=== PATIENT | female | born 1955 | race Caucasian/White ===

== ENCOUNTER 2017-08-08 15:20 | Outpatient (RCR) | payer MEDICARE, OTHER ==
[2017-08-02 13:46] VITALS: BMI 43.6
[~2017-08-08 15:20] MED LIST: ALB18R IH; AMOX1TAB9 PO; ATOR20TA65 PO; BENZ200C15 PO; CIP500 PO; CITA-139 PO; CLO10 MT; CLO5 PO; CLON-1 PO; CLON-303 PO; CYCL10TA29 PO; DIPH0.5D12 IM; DOXY-179 PO; DULO30CA6 PO; ENOX100D5 SQ; ETAN25DI2 SQ; ETAN50DI5 SQ; FEXO-1 PO; FLU IM; FLU45SYR17 IM; FLU45SYR25 IM ONLY; FOL1 PO; FOLI-68 PO; GUAI120L3 PO; HCTZ; HYDR-2966 PO; LEVO750T44 PO; LIN600 PO; LISI5TAB25 PO; LOR5/325 PO; METF-410 PO; METH2.5T43 PO; METH4TAB66 PO; MICARDIS; MULT1CAP59 PO; NYSP TOP; NYST15CR32 TP; NYST60PO9 TP; OMEP-114 PO; OXYC-865 PO; OXYGEN INH; PANT40TA65 PO; PER PO; PHEN240S3 PO; PNEU0.5D3 IM; PRE1 PO; PRE20 PO; PRE5 PO; PRED-1 PO; PRED20TA6 PO; SULF-198 PO; TRA50 PO; TRAM-420 PO; WARF7.5T26 PO; ZOLP-358 PO; [UNRECOGNIZED DRUG - OTHER]
--- NOTE | 2017-08-09 13:29 | Transitional Care Management ---
Assessment Visit Type: Telephone Visit (08/08 Kamilla) Cardiac: WNL Cardiac Comment: 08/08 Denies CP Respiratory: WNL Respiratory Comment: 08/08 No Resp Distress GI: Nutrition: WNL Except GI Comment: 08/09 Not really feeling hungery so trying to monitor what she does eat. She will ask [facility] for a [facility] and go to that so obtain some help. We did go over some plans ie NO sugar.! 'I'm finding that very difficult as we have some family traditions and Cookies and cand are around." Constipation?: No (08/09 some diarrhea. Enc her to monitor and call Jones if gets worse or continues) Musculoskeletal, Exercise: WNL Except Musculoskeletal, Excercise Com: 08/09 Having a difficult time with activity as her R foot hurts and HH has it wrapped. Trys walking on heel with cane to BR and to recliner. Keeping foot elevated. Mobility Comment: 08/09 Denies falls and mobility is as abovve. Feeling of Well Being: WNL Except (08/09 "I'm a little afraid as I'm concerned about my diet plan and my actiivity. so will work w HH as I need to") Community Resources/HHC: 07/22 Premium Questions for Future PCP Visit: 08/09 ORder a glucometer order for Diabetic clinic TCM Discharge Criteria Transitional Care Comment: 08/04 Pt joined program but was a little down as she thought she was going home and plans were changed so she could have a pick placement. Did not want to visit much today. I did leave her info on diabetes, metformin and vanco.Will visit again tomorrow and go over the info. 08/08 Phone call short as HH there at time of call. She states she is doing OK. 08/09 She seemed to being OK. Her Grandson was helping her. He is very assistive and wants to help her all he can. HH had just visited and wrapped her foot. States it is OK during the day but seemed pretty painful at night. Told her to call the doctor if pain got worse or have HH check foot wor any signs of infection. She wanted us to call her a couple more times for the suppirt and instructions. 08/05 Had not read the infp--we went over the importance of diabetic diet and the possibilty of needing to do BS. She said "she couldn"t get a glucometer until [place] I talked to her providing nurse and ask her to start letting her do her glucoses and shots so she would have an idea once she went home. Kamilla is depressed today as she learned this AM that she would be having her great toe amputated tomorrow, but would probably be able to go home on Monday.She has not been real receptive in talking about her diabetes and cellulitis in great toe. Will have HH on discharge. 08/07 Spoke with her briefly, she is discharging and is very preoccupied. I reviewed her discharge medications, but she was not focused. Copies to: ESTER STEELE APRN, JOAN Aug 09, 2017 13:29
[2017-08-11] MEDS ORDERED: FLUC150T40 PO (11:03)
--- NOTE | 2017-08-16 13:14 | Transitional Care Management ---
Assessment Cardiac: WNL Cardiac Comment: 08/08 Denies CP Respiratory: WNL Respiratory Comment: 08/08 No Resp Distress GI: Nutrition: WNL Except GI Comment: 08/09 Not really feeling hungery so trying to monitor what she does eat. She will ask [facility] for a script [facility] and go to that so obtain some help. We did go over some plans ie NO sugar.! 'I'm finding that very difficult as we have some family traditions and Cookies and cand are around." Constipation?: No (08/09 some diarrhea. Enc her to monitor and call Jones if gets worse or continues) Musculoskeletal, Exercise: WNL Except Musculoskeletal, Excercise Com: 08/09 Having a difficult time with activity as her R foot hurts and HH has it wrapped. Trys walking on heel with cane to BR and to recliner. Keeping foot elevated. Mobility Comment: 08/09 Denies falls and mobility is as abovve. Feeling of Well Being: WNL Except (08/09 "I'm a little afraid as I'm concerned about my diet plan and my actiivity. so will work w HH as I need to") Community Resources/HHC: 07/22 Premium Questions for Future PCP Visit: 08/09 ORder a glucometer order for Diabetic clinic TCM Discharge Criteria Transitional Care Comment: 08/04 Pt joined program but was a little down as she thought she was going home and plans were changed so she could have a pick placement. Did not want to visit much today. I did leave her info on diabetes, metformin and vanco.Will visit again tomorrow and go over the info. 08/05 Had not read the infp--we went over the importance of diabetic diet and the possibilty of needing to do BS. She said "she couldn"t get a glucometer until [place] I talked to her providing nurse and ask her to start letting her do her glucoses and shots so she would have an idea once she went home. Kamilla is depressed today as she learned this AM that she would be having her great toe amputated tomorrow, but would probably be able to go home on Monday.She has not been real receptive in talking about her diabetes and cellulitis in great toe. Will have HH on discharge. 08/07 Spoke with her briefly, she is discharging and is very preoccupied. I reviewed her discharge medications, but she was not focused. 08/08 Phone call short as HH there at time of call. She states she is doing OK. 08/09 She seemed to being OK. Her Grandson was helping her. He is very assistive and wants to help her all he can. HH had just visited and wrapped her foot. States it is OK during the day but seemed pretty painful at night. Told her to call the doctor if pain got worse or have HH check foot wor any signs of infection. She wanted us to call her a couple more times for the suppirt and instructions. VALENTINE GONZALEZ Aug 16, 2017 13:14
--- NOTE | 2017-08-16 13:40 | Transitional Care Management ---
Assessment Visit Type: Telephone Visit Spoke with: Kamilla Cardiac: WNL Cardiac Comment: 08/08 Denies CP Respiratory: WNL Respiratory Comment: 08/08 No Resp Distress GI: Nutrition: WNL Except GI Comment: 08/09 Not really feeling hungery so trying to monitor what she does eat. She will ask [facility] for a script [facility] and go to that so obtain some help. We did go over some plans ie NO sugar.! 'I'm finding that very difficult as we have some family traditions and Cookies and cand are around." 08/16 Blood Glucose staying in the 130's. Constipation?: No (08/09 some diarrhea. Enc her to monitor and call Jones if gets worse or continues) Musculoskeletal, Exercise: WNL Except Musculoskeletal, Excercise Com: 08/09 Having a difficult time with activity as her R foot hurts and HH has it wrapped. Trys walking on heel with cane to BR and to recliner. Keeping foot elevated. 08/16 Using a walker, but has a hard time getting around without putting weight on her foot. Mobility Comment: 08/09 Denies falls and mobility is as abovve. Integumentary: WNL Except Integumentary Comment: 08/16 HH doing daily dressing changes. Feeling of Well Being: WNL Except (08/09 "I'm a little afraid as I'm concerned about my diet plan and my actiivity. so will work w HH as I need to") Feeling of Well Being Comment: 08/16 She is very proud of her ability to maintain blood sugars in the 130's with holiday sweets around. She refrained from eating the sweets. Socialization: WNL Pain/Management: WNL Scheduled Follow-Up with [facility]: Yes (08/[address] Cárdenas today.) Community Resources/HHC: 07/22 Premium Questions for Future PCP Visit: 08/09 ORder a glucometer order for Diabetic clinic 08/16 She does not have a glucometer, she uses her husbands. Following Discharge Instructio: Yes TCM Discharge Criteria Transitional Care Comment: 08/04 Pt joined program but was a little down as she thought she was going home and plans were changed so she could have a pick placement. Did not want to visit much today. I did leave her info on diabetes, metformin and vanco.Will visit again tomorrow and go over the info. 08/05 Had not read the infp--we went over the importance of diabetic diet and the possibilty of needing to do BS. She said "she couldn"t get a glucometer until Monday [place] I talked to her providing nurse and ask her to start letting her do her glucoses and shots so she would have an idea once she went home. Kamilla is depressed today as she learned this AM that she would be having her great toe amputated tomorrow, but would probably be able to go home on Monday.She has not been real receptive in talking about her diabetes and cellulitis in great toe. Will have HH on discharge. 08/07 Spoke with her briefly, she is discharging and is very preoccupied. I reviewed her discharge medications, but she was not focused. 08/08 Phone call short as HH there at time of call. She states she is doing OK. 08/09 She seemed to being OK. Her Grandson was helping her. He is very assistive and wants to help her all he can. HH had just visited and wrapped her foot. States it is OK during the day but seemed pretty painful at night. Told her to call the doctor if pain got worse or have HH check foot wor any signs of infection. She wanted us to call her a couple more times for the suppirt and instructions. 08/[address] Cárdenas today, blood sugars have been in the 130's, she does not have a glucometer yet, she says she needs an order from [facility]. I encouraged her to call to see if she could get an order sent in. She has been using her 's glucometer. HH changing her dressing daily, no s/s of infection. Copies to: ESTER STEELE APRN-[place]son; ROBBY CÁRDENAS MD, MICHAEL K Aug 16, 2017 13:39
[2017-08-16] MEDS ORDERED: diabetic supplies (16:21)
--- NOTE | 2017-08-24 17:09 | Transitional Care Management ---
Assessment Cardiac: WNL Cardiac Comment: 08/08 Denies CP Respiratory: WNL Respiratory Comment: 08/08 No Resp Distress GI: Nutrition: WNL Except GI Comment: 08/09 Not really feeling hungery so trying to monitor what she does eat. She will ask [facility] for a script [facility] and go to that so obtain some help. We did go over some plans ie NO sugar.! 'I'm finding that very difficult as we have some family traditions and Cookies and cand are around." 08/16 Blood Glucose staying in the 130's. 08/24 blood sugars stable in the 90's Wt Gain/Loss: WNL Constipation?: No (08/09 some diarrhea. Enc her to monitor and call Jones if gets worse or continues) : WNL Musculoskeletal, Exercise: WNL Musculoskeletal, Excercise Com: 08/09 Having a difficult time with activity as her R foot hurts and HH has it wrapped. Trys walking on heel with cane to BR and to recliner. Keeping foot elevated. 08/16 Using a walker, but has a hard time getting around without putting weight on her foot. Mobility Comment: 08/09 Denies falls and mobility is as abovve. Integumentary: WNL Except Integumentary Comment: 08/16 HH doing daily dressing changes. 08/24 HH has stopped doing the dressing changes, she and her granddaughter have been doing them. 08/24 I spoke with [facility], kamilla had been refusing the dressing changes, and [facility] has been trying to speak with her about it. The dressing change is a bandaid. Feeling of Well Being: WNL Except (08/09 "I'm a little afraid as I'm concerned about my diet plan and my actiivity. so will work w HH as I need to") Feeling of Well Being Comment: 08/16 She is very proud of her ability to maintain blood sugars in the 130's with holiday sweets around. She refrained from eating the sweets. 08/24 Feels good, proud of her blood sugars. Socialization: WNL Pain/Management: WNL Scheduled Follow-Up with [facility]: Yes (08/[address] Evans today.) Community Resources/HHC: 07/22 Premium Questions for Future PCP Visit: 08/09 ORder a glucometer order for Diabetic clinic 08/16 She does not have a glucometer, she uses her husbands. 08/24 has glucometer Following Discharge Instructio: Yes TCM Discharge Criteria Transitional Care Comment: 08/04 Pt joined program but was a little down as she thought she was going home and plans were changed so she could have a pick placement. Did not want to visit much today. I did leave her info on diabetes, metformin and vanco.Will visit again tomorrow and go over the info. 08/05 Had not read the infp--we went over the importance of diabetic diet and the possibilty of needing to do BS. She said "she couldn"t get a glucometer until Monday [place] I talked to her providing nurse and ask her to start letting her do her glucoses and shots so she would have an idea once she went home. Kamilla is depressed today as she learned this AM that she would be having her great toe amputated tomorrow, but would probably be able to go home on Monday.She has not been real receptive in talking about her diabetes and cellulitis in great toe. Will have HH on discharge. 08/07 Spoke with her briefly, she is discharging and is very preoccupied. I reviewed her discharge medications, but she was not focused. 08/08 Phone call short as HH there at time of call. She states she is doing OK. 08/09 She seemed to being OK. Her Grandson was helping her. He is very assistive and wants to help her all he can. HH had just visited and wrapped her foot. States it is OK during the day but seemed pretty painful at night. Told her to call the doctor if pain got worse or have HH check foot wor any signs of infection. She wanted us to call her a couple more times for the suppirt and instructions. 08/[address] Evans today, blood sugars have been in the 130's, she does not have a glucometer yet, she says she needs an order from Sarah [facility]. I encouraged her to call to see if she could get an order sent in. She has been using her 's glucometer. HH changing her dressing daily, no s/s of infection. 08/[address] Evans tomorrow to have sutures removed. blood sugars well controlled. May discharge with next follow up call if appropriate. VALENTINE GONZALEZ Aug 24, 2017 17:09
--- NOTE | 2017-08-30 14:53 | Transitional Care Management ---
Assessment Visit Type: Telephone Visit Spoke with: Kamilla Cardiac: WNL Cardiac Comment: 08/08 Denies CP Respiratory: WNL Respiratory Comment: 08/08 No Resp Distress GI: Nutrition: WNL Except GI Comment: 08/09 Not really feeling hungery so trying to monitor what she does eat. She will ask Jones PE[facility] for a script [facility] and go to that so obtain some help. We did go over some plans ie NO sugar.! 'I'm finding that very difficult as we have some family traditions and Cookies and cand are around." 08/16 Blood Glucose staying in the 130's. 08/24 blood sugars stable in the 90's 08/30 BS range 92-101. On metformin alone. Gave away her Cmas sweets to family. Watching diet better with portion control. Worried about spouse with BS over 200 and A1C >10. Wt Gain/Loss: WNL Constipation?: No (08/09 some diarrhea. Enc her to monitor and call Jones if gets worse or continues) : WNL Musculoskeletal, Exercise: WNL Musculoskeletal, Excercise Com: 08/09 Having a difficult time with activity as her R foot hurts and HH has it wrapped. Trys walking on heel with cane to BR and to recliner. Keeping foot elevated. 08/16 Using a walker, but has a hard time getting around without putting weight on her foot. Mobility Comment: 08/09 Denies falls and mobility is as abovve. 08/30 Has to be careful amb as the sutrued area on her toe is bearing wt when she amb. Enc to Ask Sarah at next appt if an orthotic or PT would be helpful Integumentary: WNL Except Integumentary Comment: 08/16 HH doing daily dressing changes. 08/24 HH has stopped doing the dressing changes, she and her granddaughter have been doing them. 08/24 I spoke with [facility], kamilla had been refusing the dressing changes, and [facility] has been trying to speak with her about it. The dressing change is a bandaid. 08/30 Wound has healed per MD clinic note; sutures out, no f/u needed. Still has a scab Feeling of Well Being: WNL Except (08/09 "I'm a little afraid as I'm concerned about my diet plan and my actiivity. so will work w HH as I need to") Feeling of Well Being Comment: 08/16 She is very proud of her ability to maintain blood sugars in the 130's with holiday sweets around. She refrained from eating the sweets. 08/24 Feels good, proud of her blood sugars. Socialization: WNL Pain/Management: WNL Scheduled Follow-Up with [facility]: Yes (08/[address] Evans today.) Community Resources/HHC: 07/22 Premium 08/30 no more HHC after 08/17. Sees Sarah 09/01 Questions for Future PCP Visit: 08/09 ORder a glucometer order for Diabetic clinic 08/16 She does not have a glucometer, she uses her husbands. 08/24 has glucometer 08/30 placing wt on sutured area of toe and is irritating; would she benefit from PT or an orthotic? Following Discharge Instructio: Yes TCM Discharge Criteria Medication Knowledge: 08/30 no med changes, oral meds for diabetes Transitional Care Comment: 08/04 Pt joined program but was a little down as she thought she was going home and plans were changed so she could have a picc placement. Did not want to visit much today. I did leave her info on diabetes, metformin and vanco.Will visit again tomorrow and go over the info. 08/05 Had not read the info--we went over the importance of diabetic diet and the possibilty of needing to do BS. She said "she couldn"t get a glucometer until Monday [place] I talked to her providing nurse and ask her to start letting her do her glucoses and shots so she would have an idea once she went home. Kamilla is depressed today as she learned this AM that she would be having her great toe amputated tomorrow, but would probably be able to go home on Monday.She has not been real receptive in talking about her diabetes and cellulitis in great toe. Will have HH on discharge. 08/07 Spoke with her briefly, she is discharging and is very preoccupied. I reviewed her discharge medications, but she was not focused. 08/08 Phone call short as HH there at time of call. She states she is doing OK. 08/09 She seemed to being OK. Her Grandson was helping her. He is very assistive and wants to help her all he can. HH had just visited and wrapped her foot. States it is OK during the day but seemed pretty painful at night. Told her to call the doctor if pain got worse or have HH check foot wor any signs of infection. She wanted us to call her a couple more times for the suppirt and instructions. 08/[address] Evans today, blood sugars have been in the 130's, she does not have a glucometer yet, she says she needs an order from Sarah Bishop. I encouraged her to call to see if she could get an order sent in. She has been using her 's glucometer. HH changing her dressing daily, no s/s of infection. 08/[address] Evans tomorrow to have sutures removed. blood sugars well controlled. May discharge with next follow up call if appropriate. 08/30 wound has healed, BS managed with oral meds. Agree to dc from DENNIS Leone Aug 30, 2017 14:53
[2017-09-01] MEDS ORDERED: LISI5TAB25 PO (11:13)
[2017-09-01] MEDS ORDERED: DULO30CA6 PO (11:13)
[2017-09-01] MEDS ORDERED: PRED-1 PO (11:13)
[2017-09-01] MEDS ORDERED: PANT40TA65 PO (11:13)
[2017-09-01] MEDS ORDERED: NYST15CR32 TP (11:13)
[2017-09-01] MEDS ORDERED: NYST60PO9 TP (11:13)
[2017-09-01] MEDS ORDERED: HYDR-2966 PO (11:13)
[2017-09-01] MEDS ORDERED: FOLI-68 PO (11:13)
[2017-09-01] MEDS ORDERED: PRE1 PO (11:13)
[2017-09-01] MEDS ORDERED: METF-410 PO (11:13)
[2017-09-01] MEDS ORDERED: ATOR20TA65 PO (11:13)
== END 2017-08-30 17:53 | disposition home or self-care (01) ==
LOC: TCM 15:20
PROVIDERS: ATTEND Nurse Practitioner
DX: Z02.9 Encounter for administrative examinations, unspecified (principal)

== ENCOUNTER → 2017-09-01 | Outpatient (CLI) | payer MEDICARE, OTHER ==
[2017-08-02 13:46] VITALS: BMI 43.6
[~2017-09-01] MED LIST changes: +FLUC150T40 PO; +diabetic supplies
[2017-09-01 09:33] LABS: PLATELET COUNT, AUTOMATED 212 K/uL (150-450)
[2017-09-01 10:12] LABS: LDL CHOLESTEROL 48 mg/dl
== END ==
LOC: LAB 08-31 16:40
PROVIDERS: ATTEND Nurse Practitioner Family
DX: E11.9 Type 2 diabetes mellitus without complications (principal); Z86.2 Personal history of diseases of the blood and blood-forming organs and certain disorders involving the immune mechanism; I10 Essential (primary) hypertension; E78.5 Hyperlipidemia, unspecified; E87.6 Hypokalemia; M86.9 Osteomyelitis, unspecified
CPT/HCPCS: 36415; 82040; 82247; 82310; 82374; 82435; 82465; 82565; 82947; 83036; 83718; 84075; 84132; 84155; 84295; 84443; 84450; 84460; 84478; 84520; 85025; 86140

== ENCOUNTER 2017-09-16 04:58 | Emergency (ER) | payer MEDICARE, OTHER ==
[2017-08-02 13:46] VITALS: Ht 177.8 cm; Wt 137.9 kg
[~2017-09-16] VITALS: Ht 177.8 cm; Wt 137.9 kg
--- NOTE | 2017-09-16 05:00 | ER Report ---
History and Physical Time Seen By MD: 04:59 HPI/ROS CHIEF COMPLAINT: Sore throat, difficulty swallowing HISTORY OF PRESENT ILLNESS: 62-year-old female with a sore throat for one week. Is become worse over the last few days. She notes pain with swallowing. She also notes significant secretions where she feels like she has to continue to swallow to prevent them from building up. She is concerned she may aspirate. Patient notes no fevers. Patient has significant medical history for rheumatoid arthritis on immunosuppression and prednisone. Patient notes no difficulty swallowing other than pain. She denies foreign body sensation. She notes significant pain on the left side of her neck and thinks she feels a lump in the anterior cervical chain area. She notes the pain radiates up to her left ear. Patient denies ear pain or drainage. Patient denies TMJ disorder. REVIEW OF SYSTEMS: Respiratory: No cough, no dyspnea. Cardiovascular: No chest pain, no palpitations. Gastrointestinal: No vomiting, no abdominal pain. Musculoskeletal: No back pain. Allergies: Coded Allergies: levofloxacin (Verified Allergy, Intermediate, RASH, 09/16/17) Home Meds Active Scripts Oxycodone Hcl/Acetaminophen (PERCOCET 5-325 MG TABLET) 1 Each Tablet, 1 EACH PO Q4-6H Y for PAIN, #12 Prov:TIM BURGER DO 09/16/17 Amoxicillin 500 Mg Tab (AMOXICILLIN 500 MG TAB) 500 Mg Tablet, 1 TAB PO Q8H for infection, #20 TAB Prov:TIM BURGER DO 09/16/17 Clotrimazole (CLOTRIMAZOLE) 10 Mg Troc, 10 MG MT QID for yeast infection, #30 Prov:TIM BURGER DO 09/16/17 Duloxetine HCl (Duloxetine HCl) 30 Mg Capsule.dr, 1 CAP PO DAILY, #30 CAP 0 Refills Prov:ESTER STEELE APRN [facility] 09/01/17 Prednisone 10 Mg Tab (PREDNISONE 10 MG TAB) 10 Mg Tablet, 1 TAB PO QAM, #30 TAB 0 Refills Prov:ESTER STEELE APRN [facility] 09/01/17 Prednisone (PREDNISONE) 1 Mg Tab, 1 TAB PO HS, #30 TAB 0 Refills Prov:ESTER STEELE APRN [facility] 09/01/17 Atorvastatin Calcium (ATORVASTATIN CALCIUM) 20 Mg Tablet, 1 TAB PO DAILY, #90 TAB 4 Refills Prov:ESTER STEELE APRN-[place] 09/01/17 Hydrochlorothiazide (HYDROCHLOROTHIAZIDE) 25 Mg Tablet, 1 TAB PO QDAY, #90 TAB 4 Refills Prov:ESTER STEELE APRN-C 09/01/17 Lisinopril (LISINOPRIL) 5 Mg Tablet, 1 TAB PO QDAY, #90 TAB 4 Refills Prov:ESTER STEELE APRN 09/01/17 Metformin Hcl (METFORMIN HCL) 500 Mg Tablet, 2 TAB PO BID, #120 TAB 4 Refills Prov:ESTER STEELE APRN 09/01/17 NYSTATIN 798959 UNT/ML Topical Cream (NYSTATIN 149181 UNT/ML Topical Cream) 15 Gm Cream..g., 1 LELO TP TID, #60 GM 1 Refill Prov:ESTER STEELE APRN 09/01/17 Folic Acid (FOLIC ACID) 1 Mg Tablet, 1 TAB PO QDAY, #90 TAB 4 Refills Prov:ESTER STEELE APRN 09/01/17 Pantoprazole Sodium (PANTOPRAZOLE SODIUM) 40 Mg Tablet.dr, 1 TAB PO QDAY, #90 TAB.SR 4 Refills Prov:ESTER STEELE APRN 09/01/17 Nystatin (NYSTOP) 60 Gm Powder, 1 LELO TP TID Y for RASH, #1 BOTTLE 3 Refills 100,000 RETIREMENT units per gram Prov:ESTER STEELE APRN 09/01/17 [diabetic supplies] No Conflict Check Prov:ESTER STEELE APRN 08/16/17 Fluconazole (DIFLUCAN) 150 Mg Tablet, 1 TAB PO Q72H, #2 TAB 0 Refills Prov:ESTER STEELE APRN 08/11/17 Amoxicillin/Potassium Clav (AMOX TR-K CLV 875-125 MG TAB) 1 Each Tablet, 1 TAB PO Q12H, #20 TAB 0 Refills Prov:ROBBY CÁRDENAS MD 08/07/17 Albuterol Sulfate (VENTOLIN HFA) 18 Gm Inh, 2 PUFF IH QID Y for WHEEZING, #1 INHALER 2 Refills Prov:ESTER STEELE APRN [facility] 09/06/16 Clonazepam (KLONOPIN) 1 Mg Tablet, 1 TAB PO QHS Y for restless leg symptoms, # 90 TAB 1 Refill Prov:ESTER STEELE APRN [facility] 09/06/16 Zolpidem Tartrate (ZOLPIDEM TARTRATE) 10 Mg Tablet, 1 TAB PO QHS Y for INSOMNIA , #90 TAB 1 Refill Prov:ESTER STEELE APRN [facility] 09/06/16 Reported Medications Oxygen (Oxygen) 2 L Inha, 2 L INH HS 10/28/12 Multivitamins (Multivitamin) 1 Each Capsule, 1 EACH PO 10/28/12 Past Medical/Surgical History Past Medical History Cardiovascular: Reports hx of: hypertension other CV history (iron deficiency anemia) Respiratory: Reports hx of: asthma pneumonia (2017) other respiratory history (nocturnal hypoxia - no sleep apnea - wears 2 lpm O2 at HS) Gastrointestinal: Reports hx of: GERD Musculoskeletal: Reports hx of: rheumatoid arthritis (Enbrel and prednisone) Psychiatric: Reports hx of: depression Endocrine: Reports hx of: diabetes type 2 Past Surgical History Gastrointestinal: Reports hx of: cholecystectomy (2010) Musculoskeletal: Reports hx of: total joint replacement (bilateral knees - 2003 and 2004) Reviewed Nurses Notes: Yes Old Medical Records Reviewed: Yes Hx Smoking: No Smoking Status: Never Smoker Exposure to Second Hand Smoke?: No Hx Substance Use Disorder: No Hx Alcohol Use: No Constitutional Vital Sign - Last 24 Hours 09/16/17 05:04 Temp 98.3 Pulse 95 Resp 20 B/P (MAP) 145/88 Pulse Ox 92 O2 Delivery Room Air Physical Exam General Appearance: The patient is alert, has no immediate need for airway protection and no signs of toxicity. Mild distress, holding a cup and drinking , frequency, some water Eyes: Pupils equal and round no pallor or injection. ENT, Mouth: Oropharynx is grossly erythematous without uvular deviation or tonsillar hypertrophy. There is no exudate. On palpation of the anterior cervical chain. There is no lymphadenopathy or induration of tissues. There is mild tenderness on palpation. The left side. Respiratory: There are no retractions, lungs are clear to auscultation. Cardiovascular: Regular rate and rhythm. Gastrointestinal: Abdomen is soft and non tender, no masses, bowel sounds normal. Skin: Warm and dry, no rashes. Musculoskeletal: Neck is supple non tender. No lymphadenopathy, no induration Extremities are nontender, nonswollen and have full range of motion. DIFFERENTIAL DIAGNOSIS: After history and physical exam differential diagnosis was considered for acute pharyngitis, viral syndrome, oral candidiasis, neck abscess, lymphadenopathy, TMJ disorder, sinus infection, dental pain. Medical Decision Making Data Points Laboratory Hematology Test 09/16/17 05:25 Group A Streptococcus Screen Negative (NEGATIVE) Chemistry Test 09/16/17 05:25 Group A Streptococcus Screen Negative (NEGATIVE) ED Course/Re-evaluation ED Course Patient was admitted to an examination room. H&P was done. The differential diagnoses was considered. On clinical examination. Patient has limited clinical findings. She is afebrile, but she's immunosuppressed. Her throat is grossly erythematous. With her immunosuppression differential would make a significant candidiasis. She may also have strep pharyngitis. I did offer her strep culture, which is negative. Patient be covered with amoxicillin, Mycelex troches. She'll be given a limited supply of Percocet for Her pain relief. She is advised to follow-up with her primary care doctor if unimproved in 2-3 days. Decision to Disposition Date: Sep 16, 2017 Decision to Disposition Time: 05:22 Depart Departure Latest Vital Signs Vital Signs Date Time Temp Pulse Resp B/P (MAP) Pulse Ox O2 Delivery O2 Flow Rate FiO2 09/16/17 05:04 98.3 95 20 145/88 92 Room Air Impression: Primary Impression: Pharyngitis Additional Impressions: Painful swallowing Rheumatoid arthritis Immunosuppression Condition: Improved Disposition: HOME OR SELF-CARE Referrals: ESTER STEELE APRN [facility] (PCP) New Scripts Oxycodone Hcl/Acetaminophen (PERCOCET 5-325 MG TABLET) 1 Each Tablet 1 EACH PO Q4-6H Y for PAIN, #12 Prov: TIM BURGER DO 09/16/17 Amoxicillin 500 Mg Tab (AMOXICILLIN 500 MG TAB) 500 Mg Tablet 1 TAB PO Q8H for infection, #20 TAB Prov: TIM UBRGER DO 09/16/17 Clotrimazole (CLOTRIMAZOLE) 10 Mg Troc 10 MG MT QID for yeast infection, #30 Prov: TIM BURGER DO 09/16/17 Patient Instructions: Pharyngitis (ED) Additional Instructions: Take Benadryl to dry up the secretions Take medications as prescribed Follow-up with her primary care if unimproved in 2-4 days Problem Qualifiers Primary Impression: Pharyngitis Pharyngitis/tonsillitis etiology: unspecified etiology Qualified Codes: J02.9 - Acute pharyngitis, unspecified Additional Impressions: Rheumatoid arthritis Rheumatoid arthritis location: unspecified site Rheumatoid factor presence: unspecified presence Qualified Codes: M06.9 - Rheumatoid arthritis, unspecified TIM BURGER DO Sep 16, 2017 05:00
[2017-09-16 05:04] VITALS: BP 145/88
[2017-09-16] MEDS ORDERED: AMOXICILLIN 500 MG CAP PO ONE (05:25)
[2017-09-16] MEDS ORDERED: oxyCODONE/ACETAMIN 5/325MG TH 2 TAB/BOTTLE PO ONE (05:25)
[2017-09-16] MEDS ORDERED: CLO10 MT (05:26)
[2017-09-16] MEDS ORDERED: AMOX500T10 PO (05:26)
[2017-09-16] MEDS ORDERED: OXYC-865 PO (05:26)
== END 2017-09-16 05:35 | disposition home or self-care (01) ==
LOC: ER 05:09
DX: J02.9 Acute pharyngitis, unspecified (principal); M06.9 Rheumatoid arthritis, unspecified; R13.10 Dysphagia, unspecified
CPT/HCPCS: 87081; 87880; 99281; A9270

== ENCOUNTER → 2018-01-18 | Outpatient (CLI) | payer MEDICARE, OTHER ==
[2017-08-02 13:46] VITALS: BMI 43.6
[~2018-01-18] MED LIST changes: +AMOX500T10 PO; -CITA-139 PO; +CITA-145 PO; +LOSA25TA50 PO; -METF-410 PO; +METF-411 PO; +METF10002 PO; +OLO2ODPT OU; +TIO18R INH
== END ==
LOC: LAB 07:27
PROVIDERS: ATTEND Nurse Practitioner Family
DX: E78.5 Hyperlipidemia, unspecified (principal); E11.9 Type 2 diabetes mellitus without complications
CPT/HCPCS: 36415; 82040; 82247; 82310; 82374; 82435; 82565; 82947; 83036; 84075; 84132; 84155; 84295; 84443; 84450; 84460; 84520

== ENCOUNTER → 2018-01-23 | Outpatient (CLI) | payer MEDICARE, OTHER ==
[2017-08-02 13:46] VITALS: BMI 43.6
[~2018-01-23] MED LIST changes: +AMOX-559 PO
== END ==
LOC: LAB 14:30
PROVIDERS: ATTEND Nurse Practitioner Primary Care
DX: R30.0 Dysuria (principal)
CPT/HCPCS: 81001

== ENCOUNTER → 2018-01-25 | Outpatient (CLI) | payer MEDICARE, OTHER ==
[2017-08-02 13:46] VITALS: BMI 43.6
[~2018-01-25] MED LIST changes: +ETAN50PE3 SQ
--- NOTE | 2018-01-25 15:18 | RADIOLOGY IMAGING REPORT ---
FACILITY: [facility] PATIENT NAME: ECHO SWANSON : [id number] MR: [id number] V: [id number] EXAM DATE: [id number] ORDERING PHYSICIAN: ESTER STEELE TECHNOLOGIST: Aaliyah Lane PROCEDURE:BILATERAL DIGITAL SCREENING MAMMOGRAM WITH CAD ASSISTED INTERPRETATION & 3D TOMOSYNTHESIS COMPARISON:Prior mammograms 10/25/16, 09/20/16. INDICATIONS:screening FINDINGS: Mildly heterogeneous fibroglandular tissue is seen throughout the breasts. The parenchymal pattern has remained stable allowing for difference in mammographic technique & patient positioning. There is no evidence of malignant appearing mass, malignant appearing calcifications or other secondary sign of malignancy in either breast. DIAGNOSTIC CATEGORY 1--NEGATIVE. RECOMMENDATIONS: ROUTINE MAMMOGRAM AND CLINICAL EVALUATION. IMPRESSION: BIRADS 1: Negative. No significant abnormality is seen. Dictated by: Kirstie Garcia M.D. on 01/25/2018 at 9:37 Transcribed by: LEIDY on 01/25/2018 at 10:07 Approved by: Kirstie Garcia M.D. on 01/25/2018 at 15:17 [facility]
== END ==
LOC: MAMO 00:17
PROVIDERS: ATTEND Nurse Practitioner Family
DX: Z12.31 Encounter for screening mammogram for malignant neoplasm of breast (principal)
CPT/HCPCS: 77063; 77067

== ENCOUNTER 2018-04-19 14:15 | Outpatient (RCR) | payer MEDICARE, OTHER ==
[2017-08-02 13:46] VITALS: BMI 43.6
--- NOTE | 2018-01-25 15:37 | PT INITIAL EVALUATION ---
MEDICAL DIAGNOSIS: neuropathic ulcer; s/p amputation of R) great toe TREATMENT DIAGNOSIS: same DATE OF ONSET: chronic SUBJECTIVE: Pt notes that she has diabetes, which is fairly well controlled now , with most recent A1C being 6.6. Pt indicates that she did require an amputation of R) great toe due to osteomyelitis in July of [address] Evans. Pt then reports that she was seen at [facility] in order to be fitted with custom orthodics and this new toe wound under callous seemed to appear after she started wearing the new inserts. Pt arrives with sock covering calloused area with open wound draining onto sock. REHAB PROBLEM LIST: Open wound open to environment PREVIOUS MEDICAL HISTORY: see EMR OBJECTIVE: Wound at R) foot, plantar surface of distal end of 1st ray residual limb- s/p amputation measures: 0.5cm L x 0.5cm W x 0.4cm D, with periwound callous formation. No bony end feel noted in base of wound but depth is fairly boggy. Good granulation base currently noted and following debridement, edges have been beveled down to healthy wound borders. ASSESSMENT: Wound cleansed with sterile saline and treated with collagen matrix product with silver, followed by donut of Qwick to provide some off loading. This was then secured with bordered gauze dressing. Short Term Goals 1. Pt to maintain a clean, dry and intact dressing between visits and change dressing if it becomes dislodged, contaminated or overly saturated. 2. Pt to continue to control blood sugars and follow instructions of healthcare provided regarding her whole body health. \ 3. Base of wound to demo full granulation with no boggy end feel or undermining noted. 4. Edges of wound to gradually epithelialize over wound base with no signs of infection or abscess noted. \ 5. Pt to have consult with receptionist regarding diabetic shoes and inserts to prevent further issues. Patient's Goals Wound to heal without further complications. PLAN: Patient to be seen for non-excisional, selective debridement of non- viable tissue and callous formation around wound bed, and advanced wound care product selection in order to optimize wound healing and minimize risk of infection. 1x/Week for up to 3 months Thank you for this referral. If you have any questions, comments, or concerns about this report or plan, please contact me at . Juanita Gordon, PT, MPT MTDD
--- NOTE | 2018-02-01 16:40 | PT INITIAL EVALUATION ---
MEDICAL DIAGNOSIS: neck pain TREATMENT DIAGNOSIS: same DATE OF ONSET: 12/19/17 SUBJECTIVE: Kamilla Gonzalez presents to physical therapy with complaints of neck pain that radiates from cervical spine to her skull on the R and L side that started approximately 1.5 months ago.She reports that the neck has slightly improved. She reports that the neck is worse with bending, turning, lying, and in the am. She reports that the neck is better with sitting and placing the neck into extension. She denies dizziness, tinnitus, nausea, and difficulty swallowing. However, she reports that when she has increased stiffness on her L side of her neck, she develops canker sores and then she has difficulties swallowing and it has occurred 4 different times and denies it ever occurring on the R side. She denies any imaging, recent accidents, or surgery. Furthermore, she reports night pain but denies any unexplained weight loss. She rates her pain to be 5/10 on the R side. She states that the L side is feeling great. Pain location is lateral to R and L of spinous process of C7- Occiput and described as tight and ache. Pain scale is 5 on a ten point pain scale. REHAB PROBLEM LIST: Increased Pain Decreased ROM Decreased Strength Decreased Endurance Decreased Balance Decreased Gait PREVIOUS MEDICAL HISTORY: See EMR OCCUPATION: [employer] at OBJECTIVE: Posture: She demonstrated protruded head, B rounded shoulders, increased thoracic kyphosis, decreased lumbar lordosis. She does not appear to have wry neck. ROM: Cervical AROM: protrusion: NIL with painful end feel. flexion: NIL with normal end feel. retraction: NIL with painful end feel. extension: NIL with painful end feel. lateral flexion R: NIL with normal end feel. lateral flexion L: minimal restriction with painful end feel. rotation R: minimal restriction with painful end feel. rotation L: moderate restriction with painful end feel. Palpation: TTP: lateral to spinous process of R and L from C7 to occiput Sensation: C2-T1 intact Special Tests: Repeated retraction: pain felt during the test and better following the test. Repeated retraction with extension: pain felt during the test and better following the test. Mobility: Independent ASSESSMENT: Kamilla will benefit from skilled physical therapy to address the listed impairments to improve function and QOL. Based on the examination, her provisional classification is posterior derangement that has responded well to extension based principles that has resulted in increased AROM and centralized cervical pain. Short Term Goals 2 weeks: Pt will demonstrate directional preference to improve cervical AROM, reduce pain, and centralize cervical pain to improve function and QOL. 4 weeks: Pt will demonstrate centralized neck pain, improved cervical AROM, and independent with specific exercise to improve function and QOL. 6 weeks: Pt will demonstrate abolished neck pain, full cervical AROM, and return to prior level of function. Patient's Goals reduce neck tightness and sleep from 3-7 am PLAN: Patient to be seen for Manual Therapy/STM/MET Strengthening/condition Range of Motion Spinal Stabilization Work Hardening/Cond Stretching Neuromuscular Re-ed Closed Chain Program Posture/Body mechanics Gait Trg/Balance Trg Home Exercise Program Therapeutic Activities 2x/Week for 6 Weeks If you have any questions, comments, or concerns about this report or plan, please contact me at . Thank you, Luke Pal, PT, DPT MTDD
--- NOTE | 2018-04-13 14:54 | PT PLAN OF CARE ---
Physician: Luis Shaffer MD Patient is being seen: 2x/week Therapist: Luke Pal, PT, DPT Medical Diagnosis: neck pain Treatment Diagnosis: same, low back pain with radiating pain Date of Onset: 12/19/17 Date of Initial Evaluation: 02/01/18 Date patient was last seen: 04/12/18 Number of treatments: 11 Number of cancellations/No shows: 2 INTERVENTIONS: Manual Therapy/STM/MET Strengthening/condition Range of Motion Spinal Stabilization Work Hardening/Cond Stretching Neuromuscular Re-ed Closed Chain Program Posture/Body mechanics Gait Trg/Balance Trg Home Exercise Program Therapeutic Activities GOALS: 2 weeks: Pt will demonstrate directional preference to improve cervical AROM, reduce pain, and centralize cervical pain to improve function and QOL. MET 4 weeks: Pt will demonstrate centralized neck pain, improved cervical AROM, and independent with specific exercise to improve function and QOL. MET 6 weeks: Pt will demonstrate abolished neck pain, painful cervical AROM, and return to prior level of function. MET 8 weeks: Pt will demonstrate directional preference to improve lumbar AROM, reduce pain, and centralize lumbar pain to improve function and QOL 10 weeks: Pt will demonstrate centralized lumbar pain, improved lumbar AROM, independent with specific exercise, and return to prior level of function to improve function and QOL PATIENT'S GOAL: reduce neck tightness and sleep from 3-7 am MET, reduce lumbar pain so that she can walk better Status of Patient's Goals: Progressing well Patient Compliance: Good Prognosis: Excellent Reasons for continuing therapy: This is a progress note for Kamilla Gonzalez. She reports that she is doing well. She denies any cervical pain and reports that it has made a painful recovery. However, she reports that she has low back pain with pain radiating down to her R buttock and occasionally down into her R posterior thigh into her posterior capsule of her knee. She reports that it feels better with sitting and worse with standing and walking. Today, she reports her low back pain to be 4/10 with it radiating to her R buttock. Today, we performed the following: Pt with static prone extension with over pressure was able to centralize her pain from buttock to lumbar spine and to 0/10. Pt ambulation with core lock 170'x2 with LBP 0/10. Lastly, she demonstrated full trunk AROM in all directions with more normalized end feels. She continues to be independent on her specific exercise and with her posture mechanics utilizing a lumbar roll. We will continue to resolve her current derangement and then return to prior level of function. Posture: She demonstrated protruded head, B rounded shoulders, increased thoracic kyphosis, decreased lumbar lordosis. She does not appear to have wry neck. ROM: Cervical AROM: protrusion: NIL with normal end feel. flexion: NIL with normal end feel. retraction: NIL with normal end feel. extension: NIL with pain normal end feel. lateral flexion R: NIL with normal end feel. lateral flexion L: NIL with normal end feel. rotation R: NIL with normal end feel. rotation L: NIL with normal end feel. Trunk AROM: extension: NIL with painful end feel. flexion: NIL with normal end feel. R/L sidegliding: minimal restriction with painful end feel. Palpation: TTP: L4-5 with radiating pain to R buttock Special Tests: Repeated extension: pain felt during the test and better following the test. Mobility: Independent If you have any questions, please contact me at [phone]. Thank you, Luke Pal, PT, DPT KENNY
[~2018-04-19 14:15] MED LIST changes: +CELE-1 PO; +Portable Oxygen; +[UNRECOGNIZED DRUG - SUPPLY]
== END 2018-04-25 ==
LOC: PT 14:15
PROVIDERS: ATTEND Nurse Practitioner Family
DX: E11.621 Type 2 diabetes mellitus with foot ulcer (principal); L97.511 Non-pressure chronic ulcer of other part of right foot limited to breakdown of skin; Z89.411 Acquired absence of right great toe; M54.2 Cervicalgia
CPT/HCPCS: 97161

== ENCOUNTER → 2018-04-24 | Outpatient (CLI) | payer MEDICARE, OTHER ==
[2017-08-02 13:46] VITALS: BMI 43.6
[2018-04-24 14:09] LABS: PLATELET COUNT, AUTOMATED 226 K/uL (150-450)
--- NOTE | 2018-04-24 14:21 | EKG ---
[place] [facility] [place]IENT NAME: ECHO SWANSON : [id number] MR: [id number] V: [id number] EXAM DATE: ORDERING PHYSICIAN: SHIRA GOINS TECHNOLOGIST: RICCO THIBODEAUX Test Reason : CHEST PAIN Blood Pressure : / mmHG Vent. Rate : 077 BPM Atrial Rate : 077 BPM P-R Int : 132 ms QRS Dur : 096 ms QT Int : 386 ms P-R-T Axes : 039 -33 041 degrees QTc Int : 436 ms Normal sinus rhythm Left axis deviation Septal infarct , age undetermined Abnormal ECG No previous ECGs available Confirmed by Driss Frausto ([id number]) on 04/24/2018 4:56:50 PM Referred By: ESTER STEELE Confirmed By:Driss Scott
== END ==
LOC: LAB 13:48
PROVIDERS: ATTEND Nurse Practitioner Primary Care
DX: I23.1 Atrial septal defect as current complication following acute myocardial infarction (principal); R94.31 Abnormal electrocardiogram [ECG] [EKG]; R07.9 Chest pain, unspecified
CPT/HCPCS: 36415; 82040; 82247; 82310; 82374; 82435; 82565; 82947; 84075; 84132; 84155; 84295; 84450; 84460; 84484; 84520; 85025

== ENCOUNTER → 2018-06-11 | Outpatient (CLI) | payer MEDICARE, OTHER ==
[2017-08-02 13:46] VITALS: BMI 43.6
[~2018-06-11] MED LIST changes: +FLU60VIA41 IM; -LOSA25TA50 PO; +LOSA25TA52 PO; -METF-411 PO; +METF-450 PO; +TRIA15CR40 TP
[2018-06-11 12:10] LABS: PLATELET COUNT, AUTOMATED 209 K/uL (150-450)
== END ==
LOC: LAB 11:17
PROVIDERS: ATTEND Nurse Practitioner Family
DX: R42 Dizziness and giddiness (principal); R53.83 Other fatigue; E11.9 Type 2 diabetes mellitus without complications
CPT/HCPCS: 36415; 82040; 82247; 82310; 82374; 82435; 82565; 82947; 83036; 83735; 84075; 84132; 84155; 84295; 84450; 84460; 84520; 85025

== ENCOUNTER → 2018-06-15 | Outpatient (CLI) | payer MEDICARE, OTHER ==
[2017-08-02 13:46] VITALS: BMI 43.6
[2018-06-15 16:45] LABS: PLATELET COUNT, AUTOMATED 211 K/uL (150-450)
== END ==
LOC: LAB 16:08
PROVIDERS: ATTEND Nurse Practitioner Family
DX: M86.9 Osteomyelitis, unspecified (principal)
CPT/HCPCS: 36415; 82040; 82247; 82310; 82374; 82435; 82565; 82947; 83735; 84075; 84132; 84155; 84295; 84450; 84460; 84520; 85025; 86140

== ENCOUNTER → 2018-06-15 | Outpatient (CLI) | payer MEDICARE, OTHER ==
[2017-08-02 13:46] VITALS: BMI 43.6
[~2018-06-15] MED LIST changes: +PNEI IM
--- NOTE | 2018-06-15 10:05 | RADIOLOGY IMAGING REPORT ---
FACILITY: [facility] [place] PATIENT NAME: Kamilla Gonzalez : 1955 MR: [id number] V: [id number] EXAM DATE: ORDERING PHYSICIAN: ESTER STEELE TECHNOLOGIST: Location: [facility] - [place], [place] Patient: Kamilla Gonzalez : 1955 Visit/Account:[id number] Date of Sevice: 06/15/2018 MRI RIGHT FOOT W/O CONTRAST INDICATION: Nonhealing ulcer in the base of the great toe. Status post great toe amputation one year ago. History of osteomyelitis. COMPARISON: Right foot MRI 08/03/2017 TECHNIQUE: Multiplanar multisequence MR imaging is obtained of the right foot without intravenous con trast agent administration.. FINDINGS: Osseous structures/bone marrow: Patient is post amputation of the first toe through the base of the first proximal phalanx. A new cortical erosion is present at the dorsal medial aspect of the first metatarsal head (series 3, image 24), uncertain to correspond to site of known nonhealing ulcer. There is new T1 weighted hypo intensity there with associated subcortical edema, nonspecific, but concerning for recurrent osteomye litis (series 7 and 9, image 8). Severe first metatarsophalangeal osteoarthrosis is present likely involving the sesamoids. The sesam oids show normal signal. Probable reactive marrow change is present in the medial base of the residu al first distal phalanx. No osteomyelitis is seen elsewhere in the foot. Degenerative change in the tarsometatarsal joints is evident, with complete osseous fusion of the second and third joints, as well as the naviculocuneifo rm joint. Physiologic joint fluid is present. Ligaments and tendons: The plantar plates of the metatarsophalangeal joints are intact. Lisfranc joint and ligament are normal. Diffuse muscle atrophy is seen, unchanged. Distal flexor and extensor tendons are intact. The distal plantar fascia is normal. Adjacent soft tissues: There is mild reactive subcutaneous edema about the first metatarsophalangeal joint, versus celluliti s. Mild motion artifact partially limits assessment of the soft tissues of the distal amputation sit e. No definite fluid collection or abscess is seen. There is apparent fat pad fibrosis plantar to t he residual first proximal phalanx. No definite soft tissue mass or neuroma is seen. Trace fluid is present between the heads of the first through fourth metatarsals, nonspecific, and ma y be physiologic bursal fluid versus low-grade bursitis. IMPRESSION: 1. Status post amputation of the great toe through the base of the first proximal phalanx. 2. New cortical erosion dorsal medial aspect of the first metatarsal head with subjacent marrow owens ge is concerning for infection or osteomyelitis. Please correlate with site of nonhealing ulcer. Ma rrow change in the medial base of the first proximal phalanx may be reactive. 3. Assessment of the soft tissues at the distal amputation site is limited due to motion artifact. Reactive subcutaneous edema and/or cellulitis is considered where visualized. No definite abscess is seen. 4. Severe first metatarsophalangeal osteoarthrosis involving its sesamoids. 5. Probable physiologic bursal fluid in the first through third interspaces, versus low-grade bursit is. Report Dictated By: Rakel Ramirez MD at 06/15/2018 9:42 AM Report E-Signed By: Rakel Ramirez MD at 06/15/2018 10:01 AM WSN:[email or web address]
== END ==
LOC: MRI 03:13
PROVIDERS: ATTEND Nurse Practitioner Family
DX: M85.872 Other specified disorders of bone density and structure, left ankle and foot (principal); M19.072 Primary osteoarthritis, left ankle and foot; Z89.412 Acquired absence of left great toe

== ENCOUNTER → 2018-06-18 | Outpatient (CLI) | payer MEDICARE, OTHER ==
[2017-08-02 13:46] VITALS: BMI 43.6
--- NOTE | 2018-06-18 18:04 | RADIOLOGY IMAGING REPORT ---
FACILITY: [facility] PATIENT NAME: Kamilla Gonzalez : 1955 MR: [id number] V: [id number] EXAM DATE: [id number] ORDERING PHYSICIAN: ESTER STEELE TECHNOLOGIST: Location: [facility] Patient: Kamilla Gonzalez : 1955 Visit/Account:[id number] Date of Sevice: 06/18/2018 Exam type: PICC LINE PLACEMENT, PICC LINE INSERTION History: Osteomyelitis Comparison: None. Findings: Informed consent was obtained. The patient's left arm was prepped and draped usual sterile fashion. Local anesthesia was accomplished 1% lidocaine. Under sonographic and fluoroscopic guidance a 43 cm long trimmed 5 Congolese double lumen power PICC was inserted via the patent left basilic vein with the distal tip resting in superior vena cava. Both lumens of power PICC were flushed with 5 mL of salin e flush. Proximal portion PICC line was adhered the patient's arm the sterile dressing. The procedu re was accomplished without apparent complication. Sonographic images were saved to PACS. The fluor oscopy dose area product was 72.60 micro-Rivera per meter squared IMPRESSION: 1. Successful placement of a 43 cm long trimmed 5 Congolese double lumen power PICC inserted via the pa tent left basilic vein with the distal tip resting in superior vena cava Report Dictated By: Kirstie Garcia MD at 06/18/2018 5:57 PM Report E-Signed By: Kirstie Garcia MD at 06/18/2018 5:59 PM WSN:[email or web address]
--- NOTE | 2018-06-18 18:04 | RADIOLOGY IMAGING REPORT ---
FACILITY: [facility] PATIENT NAME: Kamilla Gonzalez : 1955 MR: [id number] V: [id number] EXAM DATE: [id number] ORDERING PHYSICIAN: ESTER STEELE TECHNOLOGIST: Location: [facility] [place] Patient: Kamilla Gonzalez : 1955 Visit/Account:[id number] Date of Sevice: 06/18/2018 Exam type: PICC LINE PLACEMENT, PICC LINE INSERTION History: Osteomyelitis Comparison: None. Findings: Informed consent was obtained. The patient's left arm was prepped and draped usual sterile fashion. Local anesthesia was accomplished 1% lidocaine. Under sonographic and fluoroscopic guidance a 43 cm long trimmed 5 Sudanese double lumen power PICC was inserted via the patent left basilic vein with the distal tip resting in superior vena cava. Both lumens of power PICC were flushed with 5 mL of salin e flush. Proximal portion PICC line was adhered the patient's arm the sterile dressing. The procedu re was accomplished without apparent complication. Sonographic images were saved to PACS. The fluor oscopy dose area product was 72.60 micro-Rivera per meter squared IMPRESSION: 1. Successful placement of a 43 cm long trimmed 5 Sudanese double lumen power PICC inserted via the pa tent left basilic vein with the distal tip resting in superior vena cava Report Dictated By: Kirstie Garcia MD at 06/18/2018 5:57 PM Report E-Signed By: Kirstie Garcia MD at 06/18/2018 5:59 PM WSN:[email or web address]
== END ==
LOC: RAD 06:54
PROVIDERS: ATTEND Nurse Practitioner Family
DX: M86.679 Other chronic osteomyelitis, unspecified ankle and foot (principal)
CPT/HCPCS: 36569; 76937; C1751

== ENCOUNTER 2018-07-05 10:00 | Outpatient (RCR) | payer MEDICARE, OTHER ==
[2017-08-02 13:46] VITALS: BMI 43.6
--- NOTE | 2018-04-26 16:13 | PT PLAN OF CARE ---
Physician: Luis Shaffer MD Patient is being seen: 2x/week Therapist: Luke Pal, PT, DPT Medical Diagnosis: neck pain Treatment Diagnosis: same and low back pain Date of Onset: 12/19/17 Date of Initial Evaluation: 02/01/18 Date patient was last seen: 04/26/18 Number of treatments: 14 Number of cancellations/No shows: 2 INTERVENTIONS: Manual Therapy/STM/MET Strengthening/condition Range of Motion Spinal Stabilization Work Hardening/Cond Stretching Neuromuscular Re-ed Closed Chain Program Posture/Body mechanics Gait Trg/Balance Trg Home Exercise Program Therapeutic Activities GOALS: 2 weeks: Pt will demonstrate directional preference to improve cervical AROM, reduce pain, and centralize cervical pain to improve function and QOL. MET 4 weeks: Pt will demonstrate centralized neck pain, improved cervical AROM, and independent with specific exercise to improve function and QOL. MET 6 weeks: Pt will demonstrate abolished neck pain, painful cervical AROM, and return to prior level of function. MET 8 weeks: Pt will demonstrate directional preference to improve lumbar AROM, reduce pain, and centralize lumbar pain to improve function and QOL 10 weeks: Pt will demonstrate centralized lumbar pain, improved lumbar AROM, independent with specific exercise, and return to prior level of function to improve function and QOL PATIENT'S GOAL: reduce neck tightness and sleep from 3-7 am MET, reduce lumbar pain so that she can walk better Status of Patient's Goals: Progressing well Patient Compliance: Good Prognosis: Excellent Reasons for continuing therapy: This is a progress note for Kamilla Gonzalez. She reports that she is doing well. She denies any cervical pain and reports that it has made a painful recovery. However, she reports that she has low back pain with pain radiating 1 to 1 1/2 inches right of spine, which is a significant improvement. She reports that it feels better with sitting and worse with standing and walking. Today, she reports her low back pain to be 2/10 with it radiating 1 to 1 1/2 inches to the R. Today, we performed the following: Pt with static prone extension and was able to centralize her pain from the R of her spine to lumbar spine and to 1/10. Pt ambulation with core lock 170'x2 with LBP 1/10. Lastly, she demonstrated full trunk AROM in all directions with more normalized end feels. She continues to be independent on her specific exercise and with her posture mechanics utilizing a lumbar roll. We will continue to resolve her current derangement and then return to prior level of function. Posture: She demonstrated protruded head, B rounded shoulders, increased thoracic kyphosis, decreased lumbar lordosis. She does not appear to have wry neck. ROM: Cervical AROM: protrusion: NIL with normal end feel. flexion: NIL with normal end feel. retraction: NIL with normal end feel. extension: NIL with pain normal end feel. lateral flexion R: NIL with normal end feel. lateral flexion L: NIL with normal end feel. rotation R: NIL with normal end feel. rotation L: NIL with normal end feel. Trunk AROM: extension: NIL with painful end feel. flexion: NIL with normal end feel. R/L sidegliding: minimal restriction with painful end feel. Palpation: TTP: L4-5 with radiating pain to the R 1 to 1 1/2 inches Special Tests: Repeated extension: pain felt during the test and better following the test. Mobility: Independent If you have any questions, please contact me at [phone]. Thank you, Luke Pal, PT, DPT EMILIANOD
--- NOTE | 2018-04-27 20:00 | PT PLAN OF CARE ---
MEDICAL DIAGNOSIS: neuropathic ulcer; s/p amputation of R) great toe TREATMENT DIAGNOSIS: same DATE OF ONSET: chronic SUBJECTIVE: Pt notes that she has diabetes, which is fairly well controlled now, with most recent A1C being 6.6. Pt indicates that she did require an amputation of R) great toe due to osteomyelitis in July of [address] Evans. Pt then reports that she was seen at [facility] in order to be fitted with custom orthodics and this new toe wound under callous seemed to appear after she started wearing the new inserts. Pt has now been seen for past three months in this clinic and has been compliant with once weekly dressing changes and maintaining a clean, dry and intact dressing between visits. Wound appears nearly healed, but due to previous complications, will be monitored for signs of further drainage beneath epithelium formation for one more week. PREVIOUS MEDICAL HISTORY: see EMR OBJECTIVE: Wound at R) foot, plantar surface of distal end of 1st ray residual limb- s/p amputation measures: 0.2cm L x 0.1cm W x 0.1cm D, with periwound callous formation. Wound appears epithelialized, but due to darker color at center, will continue to monitor for any signs of drainage pooling beneath this apparently healed surface. ASSESSMENT: Wound cleansed with sterile saline and off loaded by Michelle. This was then secured with bordered gauze dressing. Additionally, an athletic spica tape job was applied to minimize the flexion forces through the tip of residual ray and encourage less friction during gait. Short Term Goals (Goals 1-4 met) 1. Pt to maintain a clean, dry and intact dressing between visits and change dressing if it becomes dislodged, contaminated or overly saturated. 2. Pt to continue to control blood sugars and follow instructions of healthcare provided regarding her whole body health. \ 3. Base of wound to demo full granulation with no boggy end feel or undermining noted. 4. Edges of wound to gradually epithelialize over wound base with no signs of infection or abscess noted. \ 5. Pt to have consult with auto parts delivery driver regarding diabetic shoes and inserts to prevent further issues. (Will address within this cert period) Patient's Goals Wound to heal without further complications. (progressing) PLAN: Patient to be seen for non-excisional, selective debridement of non- viable tissue and callous formation around wound bed, and advanced wound care product selection in order to optimize wound healing and minimize risk of infection. 1x/Week for up to 3 months Thank you for this referral. If you have any questions, comments, or concerns about this report or plan, please contact me at . H. Tori Gordon, PT, MPT MTDD
== END 2018-07-25 ==
LOC: PT 10:00
PROVIDERS: ATTEND Nurse Practitioner Family
DX: E11.621 Type 2 diabetes mellitus with foot ulcer (principal); L97.511 Non-pressure chronic ulcer of other part of right foot limited to breakdown of skin; Z89.411 Acquired absence of right great toe; M54.2 Cervicalgia

== ENCOUNTER 2018-07-10 08:42 | Outpatient (RCR) | payer MEDICARE, OTHER ==
[2017-08-02 13:46] VITALS: Ht 177.8 cm; Wt 137.9 kg
[2018-06-15] MEDS: cefTRIAXone(*) 2 GM VIAL 2 GM in NS(*) 0.9% 100 ML ADDVANT BAG 100 ML IVPB SCH (16:15)
[2018-06-15] MEDS: NS(*) 0.9% 100 ML BAG 100 ML IVPB PRN (16:44)
[2018-06-15 16:49] VITALS: BP 144/80
[2018-06-16] MEDS: cefTRIAXone(*) 2 GM VIAL 2 GM in NS(*) 0.9% 100 ML ADDVANT BAG 100 ML IVPB SCH (09:10)
[2018-06-16] MEDS: NS(*) 0.9% 100 ML BAG 100 ML IVPB PRN (09:11)
[2018-06-16 09:21] VITALS: BP 120/69
[2018-06-16 11:23] VITALS: BP 128/76
[2018-06-17] MEDS: cefTRIAXone(*) 2 GM VIAL 2 GM in NS(*) 0.9% 100 ML ADDVANT BAG 100 ML IVPB SCH (09:54)
[2018-06-17] MEDS: NS(*) 0.9% 100 ML BAG 100 ML IVPB PRN ×2 (09:55→20:50)
[2018-06-17 10:14] VITALS: BP 120/70
[2018-06-17 13:59] VITALS: BP 128/70
[2018-06-17] MEDS: VANCOMYCIN(*) 1 GM VIAL 2 GM in NS(*) 0.9% 250 ML BAG 250 ML IVPB SCH (20:50)
[2018-06-17 20:54] VITALS: BP 110/56
[2018-06-17 23:05] VITALS: BP 118/51
[2018-06-18] MEDS: cefTRIAXone(*) 2 GM VIAL 2 GM in NS(*) 0.9% 100 ML ADDVANT BAG 100 ML IVPB SCH (09:15)
[2018-06-18] MEDS: NS(*) 0.9% 100 ML BAG 100 ML IVPB PRN (09:15)
[2018-06-18 09:17] VITALS: BP 123/61
[2018-06-18] MEDS: VANCOMYCIN(*) 1 GM VIAL 2 GM in NS(*) 0.9% 250 ML BAG 250 ML IVPB SCH ×2 (10:00→21:01)
[2018-06-18 21:00] VITALS: BP 138/69
[2018-06-18 23:40] VITALS: BP 114/60
[2018-06-19] MEDS: cefTRIAXone(*) 2 GM VIAL 2 GM in NS(*) 0.9% 100 ML ADDVANT BAG 100 ML IVPB SCH (08:44)
[2018-06-19] MEDS: NS(*) 0.9% 100 ML BAG 100 ML IVPB PRN (08:45)
[2018-06-19 08:47] VITALS: BP 112/65
[2018-06-19] MEDS: VANCOMYCIN(*) 1 GM VIAL 2 GM in NS(*) 0.9% 250 ML BAG 250 ML IVPB SCH ×2 (10:00→21:09)
[2018-06-19 21:21] VITALS: BP 119/63
[2018-06-20 08:58] VITALS: BP 140/90
[2018-06-20] MEDS: cefTRIAXone(*) 2 GM VIAL 2 GM in NS(*) 0.9% 100 ML ADDVANT BAG 100 ML IVPB SCH (09:25)
[2018-06-20] MEDS: NS(*) 0.9% 100 ML BAG 100 ML IVPB PRN ×2 (09:25→21:14)
[2018-06-20] MEDS: [UNRECOGNIZED DRUG - OTHER] IVPB SCH ×2 (11:17→21:14)
[2018-06-20] MEDS: VANCOMYCIN IVPB SCH ×2 (11:17→21:14)
[2018-06-20 21:20] VITALS: BP 124/63
[2018-06-20 23:25] VITALS: BP 134/70
[2018-06-21] MEDS: cefTRIAXone(*) 2 GM VIAL 2 GM in NS(*) 0.9% 100 ML ADDVANT BAG 100 ML IVPB SCH (08:35)
[2018-06-21] MEDS: NS(*) 0.9% 100 ML BAG 100 ML IVPB PRN (08:35)
[2018-06-21 08:48] VITALS: BP 125/60
[2018-06-21] MEDS: VANCOMYCIN IVPB SCH ×2 (09:50→20:42)
[2018-06-21] MEDS: [UNRECOGNIZED DRUG - OTHER] IVPB SCH ×2 (09:50→20:42)
[2018-06-21 20:40] VITALS: BP 142/80
[2018-06-21 23:15] VITALS: BP 114/60
[2018-06-22] MEDS: cefTRIAXone(*) 2 GM VIAL 2 GM in NS(*) 0.9% 100 ML ADDVANT BAG 100 ML IVPB SCH (08:23)
[2018-06-22] MEDS: NS(*) 0.9% 100 ML BAG 100 ML IVPB PRN ×2 (08:23→20:48)
[2018-06-22 08:34] VITALS: BP 122/85
[2018-06-22] MEDS: VANCOMYCIN IVPB SCH ×2 (09:46→20:50)
[2018-06-22] MEDS: [UNRECOGNIZED DRUG - OTHER] IVPB SCH ×2 (09:46→20:50)
[2018-06-22 12:08] VITALS: BP 149/71
[2018-06-22 20:48] VITALS: BP 113/69
[2018-06-22 22:57] VITALS: BP 108/76
[2018-06-23] MEDS: cefTRIAXone(*) 2 GM VIAL 2 GM in NS(*) 0.9% 100 ML ADDVANT BAG 100 ML IVPB SCH (08:54)
[2018-06-23 08:55] VITALS: BP 122/65
[2018-06-23] MEDS: VANCOMYCIN IVPB SCH ×2 (09:26→21:07)
[2018-06-23] MEDS: [UNRECOGNIZED DRUG - OTHER] IVPB SCH ×2 (09:26→21:07)
[2018-06-23 21:14] VITALS: BP 115/76
[2018-06-23 23:30] VITALS: BP 113/57
[2018-06-24] MEDS: NS(*) 0.9% 100 ML BAG 100 ML IVPB PRN ×2 (09:56→21:03)
[2018-06-24] MEDS: cefTRIAXone(*) 2 GM VIAL 2 GM in NS(*) 0.9% 100 ML ADDVANT BAG 100 ML IVPB SCH (09:57)
[2018-06-24 09:59] VITALS: BP 134/58
[2018-06-24] MEDS: VANCOMYCIN IVPB SCH ×2 (10:32→21:03)
[2018-06-24] MEDS: [UNRECOGNIZED DRUG - OTHER] IVPB SCH ×2 (10:32→21:03)
[2018-06-24 12:21] VITALS: BP 104/70
[2018-06-24 21:00] VITALS: BP 125/69
[2018-06-24 22:45] VITALS: BP 114/52
[2018-06-25 08:28] VITALS: BP 112/98
[2018-06-25] MEDS: NS(*) 0.9% 100 ML BAG 100 ML IVPB PRN (08:32)
[2018-06-25] MEDS: cefTRIAXone(*) 2 GM VIAL 2 GM in NS(*) 0.9% 100 ML ADDVANT BAG 100 ML IVPB SCH (08:32)
[2018-06-25] MEDS: VANCOMYCIN IVPB SCH ×2 (09:05→20:59)
[2018-06-25] MEDS: [UNRECOGNIZED DRUG - OTHER] IVPB SCH ×2 (09:05→20:59)
[2018-06-25 21:14] VITALS: BP 111/70
[2018-06-26 09:22] VITALS: BP 124/83
[2018-06-26] MEDS: cefTRIAXone(*) 2 GM VIAL 2 GM in NS(*) 0.9% 100 ML ADDVANT BAG 100 ML IVPB SCH (11:15)
[2018-06-26 11:57] VITALS: BP 145/70
[2018-06-26 21:00] VITALS: BP 162/72
[2018-06-26] MEDS: [UNRECOGNIZED DRUG - OTHER] IVPB SCH ×2 (21:00→21:16)
[2018-06-26] MEDS: VANCOMYCIN IVPB SCH ×2 (21:00→21:16)
[2018-06-26] MEDS: NS(*) 0.9% 100 ML BAG 100 ML IVPB PRN (21:15)
[2018-06-26 23:50] VITALS: BP 127/62
[2018-06-27 08:09] VITALS: BP 145/72
[2018-06-27] MEDS: cefTRIAXone(*) 2 GM VIAL 2 GM in NS(*) 0.9% 100 ML ADDVANT BAG 100 ML IVPB SCH (08:16)
[2018-06-27] MEDS: NS(*) 0.9% 100 ML BAG 100 ML IVPB PRN ×2 (08:17→20:49)
[2018-06-27] MEDS: VANCOMYCIN IVPB SCH ×2 (08:48→20:49)
[2018-06-27] MEDS: [UNRECOGNIZED DRUG - OTHER] IVPB SCH ×2 (08:48→20:49)
[2018-06-27 20:42] VITALS: BP 136/65
[2018-06-27 22:48] VITALS: BP_SYST 132; BP_SYST 149; BP_DIAS 67
[2018-06-28] MEDS: ALTEPLASE RECOMB 2 MG VIAL IVP PRN (09:26)
[2018-06-28 09:34] VITALS: BP 131/72
[2018-06-28] MEDS: VANCOMYCIN IVPB SCH ×2 (09:57→20:41)
[2018-06-28] MEDS: [UNRECOGNIZED DRUG - OTHER] IVPB SCH ×2 (09:57→20:41)
[2018-06-28] MEDS: cefTRIAXone(*) 2 GM VIAL 2 GM in NS(*) 0.9% 100 ML ADDVANT BAG 100 ML IVPB SCH (11:49)
[2018-06-28 20:35] VITALS: BP 113/94
[2018-06-28] MEDS: NS(*) 0.9% 100 ML BAG 100 ML IVPB PRN (20:41)
[2018-06-28 22:40] VITALS: BP 130/70
[2018-06-29] MEDS: cefTRIAXone(*) 2 GM VIAL 2 GM in NS(*) 0.9% 100 ML ADDVANT BAG 100 ML IVPB SCH (08:20)
[2018-06-29] MEDS: NS(*) 0.9% 100 ML BAG 100 ML IVPB PRN (08:20)
[2018-06-29 08:25] VITALS: BP 136/87
[2018-06-29] MEDS: VANCOMYCIN IVPB SCH ×2 (09:10→21:04)
[2018-06-29] MEDS: [UNRECOGNIZED DRUG - OTHER] IVPB SCH ×2 (09:10→21:04)
[2018-06-29 11:18] VITALS: BP 130/71
[2018-06-29 21:05] VITALS: BP 136/66
[2018-06-30] MEDS: NS(*) 0.9% 100 ML BAG 100 ML IVPB PRN (08:13)
[2018-06-30] MEDS: [UNRECOGNIZED DRUG - OTHER] IVPB SCH ×2 (08:13→20:52)
[2018-06-30] MEDS: VANCOMYCIN IVPB SCH ×2 (08:13→20:52)
[2018-06-30 08:17] VITALS: BP 97/73
[2018-06-30] MEDS: cefTRIAXone(*) 2 GM VIAL 2 GM in NS(*) 0.9% 100 ML ADDVANT BAG 100 ML IVPB SCH (09:50)
[2018-06-30 21:00] VITALS: BP 148/84
[2018-07-01] MEDS: VANCOMYCIN IVPB SCH ×2 (09:37→21:03)
[2018-07-01] MEDS: [UNRECOGNIZED DRUG - OTHER] IVPB SCH ×2 (09:37→21:03)
[2018-07-01] MEDS: NS(*) 0.9% 100 ML BAG 100 ML IVPB PRN ×2 (09:38→21:03)
[2018-07-01 09:47] VITALS: BP 138/74
[2018-07-01] MEDS: cefTRIAXone(*) 2 GM VIAL 2 GM in NS(*) 0.9% 100 ML ADDVANT BAG 100 ML IVPB SCH (11:24)
[2018-07-01 20:55] VITALS: BP 136/70
[2018-07-02 08:28] VITALS: BP 139/85
[2018-07-02] MEDS: NS(*) 0.9% 100 ML BAG 100 ML IVPB PRN (09:14)
[2018-07-02] MEDS: cefTRIAXone(*) 2 GM VIAL 2 GM in NS(*) 0.9% 100 ML ADDVANT BAG 100 ML IVPB SCH (09:14)
[2018-07-02] MEDS: ALTEPLASE RECOMB 2 MG VIAL IVP PRN (09:16)
[2018-07-02] MEDS: [UNRECOGNIZED DRUG - OTHER] IVPB SCH ×2 (09:49→20:37)
[2018-07-02] MEDS: VANCOMYCIN IVPB SCH ×2 (09:49→20:37)
[2018-07-03] MEDS: NS(*) 0.9% 100 ML BAG 100 ML IVPB PRN ×2 (09:04→20:37)
[2018-07-03] MEDS: cefTRIAXone(*) 2 GM VIAL 2 GM in NS(*) 0.9% 100 ML ADDVANT BAG 100 ML IVPB SCH (09:07)
[2018-07-03] MEDS: [UNRECOGNIZED DRUG - OTHER] IVPB SCH ×2 (09:45→20:38)
[2018-07-03] MEDS: VANCOMYCIN IVPB SCH ×2 (09:45→20:38)
[2018-07-03 11:03] VITALS: BP 136/87
[2018-07-03 11:16] VITALS: BP 149/77
[2018-07-03 20:35] VITALS: BP 132/72
[2018-07-03 21:55] VITALS: BP 129/74
[2018-07-04] MEDS: cefTRIAXone(*) 2 GM VIAL 2 GM in NS(*) 0.9% 100 ML ADDVANT BAG 100 ML IVPB SCH (09:00)
[2018-07-04 09:06] VITALS: BP 137/79
[2018-07-04] MEDS: NS(*) 0.9% 100 ML BAG 100 ML IVPB PRN (09:10)
[2018-07-04] MEDS: [UNRECOGNIZED DRUG - OTHER] IVPB SCH ×2 (09:42→20:50)
[2018-07-04] MEDS: VANCOMYCIN IVPB SCH ×2 (09:42→20:50)
[2018-07-04 20:40] VITALS: BP 135/83
[2018-07-04 22:18] VITALS: BP 127/73
[2018-07-05] MEDS: NS(*) 0.9% 100 ML BAG 100 ML IVPB PRN ×2 (09:02→20:44)
[2018-07-05 09:07] VITALS: BP 134/72
[2018-07-05] MEDS: [UNRECOGNIZED DRUG - OTHER] IVPB SCH ×2 (09:07→20:44)
[2018-07-05] MEDS: VANCOMYCIN IVPB SCH ×2 (09:07→20:44)
[2018-07-05] MEDS: cefTRIAXone(*) 2 GM VIAL 2 GM in NS(*) 0.9% 100 ML ADDVANT BAG 100 ML IVPB SCH (10:19)
[2018-07-05 20:45] VITALS: BP 133/75
[2018-07-05 22:10] VITALS: BP 132/77
[2018-07-06] MEDS: [UNRECOGNIZED DRUG - OTHER] IVPB SCH ×2 (09:07→20:51)
[2018-07-06] MEDS: NS(*) 0.9% 100 ML BAG 100 ML IVPB PRN ×2 (09:07→20:49)
[2018-07-06] MEDS: VANCOMYCIN IVPB SCH ×2 (09:07→20:51)
[2018-07-06 09:11] VITALS: BP 150/79
[2018-07-06] MEDS: cefTRIAXone(*) 2 GM VIAL 2 GM in NS(*) 0.9% 100 ML ADDVANT BAG 100 ML IVPB SCH (10:19)
[2018-07-06 20:36] VITALS: BP 142/69
[2018-07-06 22:24] VITALS: BP 116/64
[2018-07-07] MEDS: VANCOMYCIN IVPB SCH ×2 (08:51→20:39)
[2018-07-07] MEDS: [UNRECOGNIZED DRUG - OTHER] IVPB SCH ×2 (08:51→20:39)
[2018-07-07 08:58] VITALS: BP 119/80
[2018-07-07] MEDS: cefTRIAXone(*) 2 GM VIAL 2 GM in NS(*) 0.9% 100 ML ADDVANT BAG 100 ML IVPB SCH (09:58)
[2018-07-07] MEDS: NS(*) 0.9% 100 ML BAG 100 ML IVPB PRN (10:26)
[2018-07-07 20:33] VITALS: BP 136/75
[2018-07-07 21:55] VITALS: BP 138/67
[2018-07-08] MEDS: NS(*) 0.9% 100 ML BAG 100 ML IVPB PRN (09:54)
[2018-07-08] MEDS: [UNRECOGNIZED DRUG - OTHER] IVPB SCH ×2 (09:54→20:40)
[2018-07-08] MEDS: VANCOMYCIN IVPB SCH ×2 (09:54→20:40)
[2018-07-08 09:58] VITALS: BP 140/83
[2018-07-08] MEDS: cefTRIAXone(*) 2 GM VIAL 2 GM in NS(*) 0.9% 100 ML ADDVANT BAG 100 ML IVPB SCH (11:07)
[2018-07-08 20:40] VITALS: BP 135/63
[2018-07-09 08:16] VITALS: BP 145/82
[2018-07-09] MEDS: cefTRIAXone(*) 2 GM VIAL 2 GM in NS(*) 0.9% 100 ML ADDVANT BAG 100 ML IVPB SCH (08:22)
[2018-07-09] MEDS: NS(*) 0.9% 100 ML BAG 100 ML IVPB PRN ×2 (08:22→20:31)
[2018-07-09] MEDS: VANCOMYCIN IVPB SCH ×2 (09:02→20:30)
[2018-07-09] MEDS: [UNRECOGNIZED DRUG - OTHER] IVPB SCH ×2 (09:02→20:30)
[2018-07-09 20:22] VITALS: BP 132/67
[2018-07-09 21:56] VITALS: BP 129/72
[~2018-07-10] VITALS: Ht 177.8 cm; Wt 137.9 kg
[~2018-07-10 08:42] MED LIST changes: +DEXTROSE 5%(*) 100 ML BAG 100 ML IVPB PRN; +LIDOCAINE/SOD BICARB 8.4% SYR ID PRN; +NS(*) 0.9% 100 ML BAG 100 ML ONE; +NS(*) 0.9% 50 ML BAG 50 ML ONE; +VANCOMYCIN IVPB SCH; +VANCOMYCIN(*) 1 GM VIAL 1 GM, VANCOMYCIN (*) 0.5 GM VIAL 0.5 GM in NS(*) 0.9% 250 ML BA... IVPB SCH; +VANCOMYCIN(*) 1 GM VIAL 2 GM, VANCOMYCIN (*) 0.5 GM VIAL 0.5 GM in NS(*) 0.9% 500 ML BA... IVPB ONE; +[UNRECOGNIZED DRUG - OTHER] IVPB SCH
[2018-07-10] MEDS: cefTRIAXone(*) 2 GM VIAL 2 GM in NS(*) 0.9% 100 ML ADDVANT BAG 100 ML IVPB SCH (08:44)
[2018-07-10] MEDS: NS(*) 0.9% 100 ML BAG 100 ML IVPB PRN (08:45)
[2018-07-10 08:46] VITALS: BP 145/91
[2018-07-10] MEDS: VANCOMYCIN IVPB SCH (09:21)
[2018-07-10] MEDS: [UNRECOGNIZED DRUG - OTHER] IVPB SCH (09:21)
== END 2018-07-18 12:09 | disposition home or self-care (01) ==
LOC: SPU 08:42
PROVIDERS: ATTEND Nurse Practitioner Family
DX: M86.9 Osteomyelitis, unspecified (principal)
CPT/HCPCS: 36415; 36592; 73721; 80202; 82565; 83735; 85025; 86140; 96365; 96366; 96367; 96374; 96375; 96376; J0696; J1642; J2997; J3370; J7040; J7050; 36569; 76937; 82040; 82247; 82310; 82374; 82435; 82947; 84075; 84132; 84155; 84295; 84450; 84460; 84520; 99284; C1751

== ENCOUNTER → 2018-07-10 | Outpatient (CLI) | payer MEDICARE, OTHER ==
[2017-08-02 13:46] VITALS: BMI 43.6
--- NOTE | 2018-07-10 15:41 | RADIOLOGY IMAGING REPORT ---
FACILITY: [facility] PATIENT NAME: Kamilla Gonzalez : 1955 MR: [id number] V: [id number] EXAM DATE: ORDERING PHYSICIAN: ROBBY CÁRDENAS TECHNOLOGIST: Location: [facility] Patient: Kamilla Gonzalez : 1955 Visit/Account:[id number] Date of Sevice: 07/10/2018 MRI right foot Indication: Great toe infection. Evaluate for osteomyelitis. Comparison: 06/15/2018 Technique: Sagittal STIR, coronal long axis T1-weighted and T2-weighted fat saturated, short axis axi al T2-weighted fat-saturated images were obtained through the right foot. Findings: There has been prior partial amputation of the right great toe through the base of the proximal phala nx. There is an area of skin thickening and suspected ulceration involving the plantar and medial asp ect of the distal soft tissues involving the great toe amputation site. This appears better defined o n today's exam partly due to decreased patient motion. There is associated edema within the subcutane ous tissues. There is focal marrow edema within the medial and plantar aspect of the base of the prox imal phalanx at the amputation site. This area of marrow edema immediately abuts the soft tissue abno rmality. The marrow edema is also better seen on today's exam as well. Given the presence of the soft tissue abnormality and the marrow changes, findings are compatible with osteomyelitis of the proxima l phalanx along its medial and plantar margin. No well-defined fluid collection is identified. There are changes of moderate to severe osteoarthritis at the first metatarsophalangeal joint. There are degenerative changes between the metatarsal head and the sesamoids. No evidence to suggest septic arthritis. Suspected degenerative edema seen within the dorsal margin of the first metatarsal head. No other discrete soft tissue abnormality involves the forefoot. There may be an adventitial bursa se en along the plantar surface of the medial cuneiform of the midfoot. This is unchanged from the prior . No overlying soft tissue defect is felt to be present. There is solid bridging bone seen at the navicular cuneiform joints and at the second and third tarso metatarsal joints. Correlate clinically for prior midfoot fusion procedure. Osteoarthritis involves t he first tarsometatarsal joint as well as the cuboid metatarsal joints. There is nonspecific dorsal subcutaneous edema involving the forefoot and midfoot. There is extensive atrophy of the intrinsic musculature the foot most consistent with chronic denerva tion change. IMPRESSION: 1. MRI findings consistent with a soft tissue ulcer/wound involving the medial and plantar aspect of the amputation site of the right great toe with focal marrow edema present within the adjacent medial and plantar amputation margin of the proximal phalanx consistent with osteomyelitis. 2. Extensive changes of osteoarthritis at the first metatarsophalangeal joint. 3. No evidence of suspicious fluid collection. 4. Findings compatible with a midfoot arthrodesis procedure with solid bridging bone and with areas o f multifocal mid foot osteoarthritis as detailed above. Report Dictated By: Jerardo Marte at 07/10/2018 3:19 PM Report E-Signed By: Jerardo Marte at 07/10/2018 3:35 PM WSN:[email or web address]
== END ==
LOC: MRI 00:57
PROVIDERS: ATTEND Surgery
DX: M86.671 Other chronic osteomyelitis, right ankle and foot (principal)

== ENCOUNTER → 2018-10-09 | Outpatient (CLI) | payer MEDICARE, OTHER ==
[2017-08-02 13:46] VITALS: BMI 43.6
[~2018-10-09] MED LIST changes: -DEXTROSE 5%(*) 100 ML BAG 100 ML IVPB PRN; -LIDOCAINE/SOD BICARB 8.4% SYR ID PRN; -LOSA25TA52 PO; +LOSA25TA57 PO; -NS(*) 0.9% 100 ML BAG 100 ML ONE; -NS(*) 0.9% 50 ML BAG 50 ML ONE; -VANCOMYCIN IVPB SCH; -VANCOMYCIN(*) 1 GM VIAL 1 GM, VANCOMYCIN (*) 0.5 GM VIAL 0.5 GM in NS(*) 0.9% 250 ML BA... IVPB SCH; -VANCOMYCIN(*) 1 GM VIAL 2 GM, VANCOMYCIN (*) 0.5 GM VIAL 0.5 GM in NS(*) 0.9% 500 ML BA... IVPB ONE; -[UNRECOGNIZED DRUG - OTHER] IVPB SCH
[2018-10-09 09:39] LABS: PLATELET COUNT, AUTOMATED 214 K/uL (150-450)
== END ==
LOC: LAB 09:12
PROVIDERS: ATTEND Nurse Practitioner Family
DX: K12.0 Recurrent oral aphthae (principal); E11.9 Type 2 diabetes mellitus without complications; E78.5 Hyperlipidemia, unspecified; Z79.899 Other long term (current) drug therapy; Z86.2 Personal history of diseases of the blood and blood-forming organs and certain disorders involving the immune mechanism
CPT/HCPCS: 36415; 82465; 82607; 82728; 82746; 83036; 83540; 83550; 83718; 84478; 85025

== ENCOUNTER → 2018-10-18 | Outpatient (CLI) | payer MEDICARE, OTHER ==
[2017-08-02 13:46] VITALS: BMI 43.6
--- NOTE | 2018-10-18 11:51 | RADIOLOGY IMAGING REPORT ---
[place] [facility] [place] NAME: Kamilla Gonzalez : 1955 MR: [id number] V: [id number] EXAM DATE: ORDERING PHYSICIAN: ESTER STEELE TECHNOLOGIST: Location: [facility] Patient: Kamilla Gonzalez : 1955 Visit/Account:[id number] Date of Sevice: 10/18/2018 DEXA Scan 10/18/2018 8:04 AM Clinical history: screening Comparison: DEXA scan from 12/16/2011. LUMBAR SPINE: Not done due to patient weight FOREARM: The bone mineral density (BMD) measured in the ULTRADISTAL Left radius, where trabecular bone predomi nates, correlates with a Z-score of 2.6 and a T-score of 1.3 which is Normal as defined by the World Health Organization. The corresponding risk of fracture in the distal forearm is Not increased maria isabel red with a young adult reference population. There is some degenerative sclerosis along the wrist w hich contributes to distal BMD. The bone mineral density (BMD) in the MIDSHAFT of the forearm, where cortical bone predominates, south elates with a Z-score of -4.3 and a T-score of -5.5 which is significantly osteoporotic as defined by the World Health Organization. The corresponding risk of fracture in the midshaft of the forearm is increased over 16 times compared with a young adult reference population. This value has decreased b y 16.5 % since the prior study. More than 5% change is considered significant. IMPRESSION: 1. Left Forearm: Osteoporosis. There has been a significant interval decrease in the bone mineral density since the previous exam. The next DEXA scan of this patient should include the following sites: Left forearm. FRAX? WHO Fracture Risk Assessment Tool link: <http://www.shef.ac.uk/FRAX/tool.jsp?locationValue=9> PLEASE NOTE: 1) The World Health Organization defines low BMD as follows: T-score Normal > -1 Osteopenia < -1 and > -2.5 Osteoporosis < -2.5 without fractures Established osteoporosis < -2.5 with fractures 2) In general, you may wish to consider: Diagnosis Treatment Follow-up DEXA Normal BMD Prevention 2-3 years Osteopenia Prevention/therapy 1-2 years Osteoporosis Therapy Yearly 3) Fracture risk estimated from the T-score is more accurate for vertebral fractures (often spontane ous) than for hip fractures. Report Dictated By: Franky Fournier MD at 10/18/2018 11:42 AM Report E-Signed By: Franky Fournier MD at 10/18/2018 11:45 AM WSN:[email or web address]
== END ==
LOC: RAD 00:07
PROVIDERS: ATTEND Nurse Practitioner Family
DX: M85.832 Other specified disorders of bone density and structure, left forearm (principal)
CPT/HCPCS: 77080

== ENCOUNTER → 2018-10-24 | Outpatient (CLI) | payer MEDICARE, OTHER ==
[2017-08-02 13:46] VITALS: BMI 43.6
[~2018-10-24] MED LIST changes: +IBAN150T16 PO
--- NOTE | 2018-10-24 16:10 | RADIOLOGY IMAGING REPORT ---
FACILITY: [facility] [place] PATIENT NAME: Kamilla Gonzalez : 1955 MR: [id number] V: [id number] EXAM DATE: ORDERING PHYSICIAN: SHIRA GOINS TECHNOLOGIST: Location: [facility] [place] Patient: Kamilla Gonzalez : 1955 Visit/Account:[id number] Date of Sevice: 10/24/2018 Exam type: RIBS LEFT History: Left-sided rib pain, fall yesterday Comparison: None. Findings: Three views of the left ribs and a stress no gross evidence of acute left rib fracture. There is mot ion artifact present. No gross evidence of a pneumothorax. Cardiac silhouette appears normal. IMPRESSION: 1. No gross evidence of acute left rib fracture. If patient's symptoms persist follow-up imaging re commended to exclude an occult injury Report Dictated By: Kirstie Garcia MD at 10/24/2018 4:03 PM Report E-Signed By: Kirstie Garcia MD at 10/24/2018 4:06 PM WSN:[id number]
== END ==
LOC: RAD 15:22
PROVIDERS: ATTEND Nurse Practitioner Primary Care
DX: R07.81 Pleurodynia (principal)
CPT/HCPCS: 71100

== ENCOUNTER → 2018-11-08 | Outpatient (CLI) | payer MEDICARE, OTHER ==
[2017-08-02 13:46] VITALS: BMI 43.6
[~2018-11-08] MED LIST changes: +DIAZ-308 PO
[2018-11-08 08:28] LABS: PLATELET COUNT, AUTOMATED 184 K/uL (150-450)
--- NOTE | 2018-11-08 10:20 | RADIOLOGY IMAGING REPORT ---
FACILITY: [facility] - [place], [place] PATIENT NAME: Kamilla Gonzalez : 1955 MR: [id number] V: [id number] EXAM DATE: ORDERING PHYSICIAN: ESTER STEELE TECHNOLOGIST: Location: [facility] Patient: Kamilla Gonzalez : 1955 Visit/Account:[id number] Date of Sevice: 11/08/2018 Exam type: RIBS LEFT History: left rib pain - fall Comparison: October 24, 2018. Findings: Four views of the left ribs were submitted. Study is very limited due to overlying soft tissue atten uation from patient's body habitus. There appears to be increased pleural density over the lateral a spect of the left mid to lower thorax relative to the right. This could be related to pleural fluid/ hemorrhage. There is a wavy contour to the anterior aspect of the left ninth rib possibly representi ng a fracture. No pneumothorax is seen. There is no evidence of acute pulmonary consolidation. The cardiac silhouette is normal IMPRESSION: 1. Study is very limited due to overlying soft tissue attenuation from patient's body habitus. Ther e does appear to be increased pleural density over the lateral aspect left mid to lower thorax relati ve to the right. This could be related to pleural fluid/hemorrhage A wavy contour to the anterior aspect the left ninth rib may represent fracture. Report Dictated By: Kirstie Garcia MD at 11/08/2018 10:00 AM Report E-Signed By: Kirstie Garcia MD at 11/08/2018 10:16 AM WSN:[email or web address]
== END ==
LOC: RAD 07:59
PROVIDERS: ATTEND Nurse Practitioner Family
DX: R07.81 Pleurodynia (principal); R10.9 Unspecified abdominal pain; W19.XXXA Unspecified fall, initial encounter
CPT/HCPCS: 36415; 71100; 81001; 82040; 82247; 82310; 82374; 82435; 82565; 82947; 84075; 84132; 84155; 84295; 84450; 84460; 84520; 85025

== ENCOUNTER 2019-01-24 16:25 | Emergency (ER) | payer MEDICARE, OTHER ==
[2017-08-02 13:46] VITALS: Wt 129.3 kg
[~2019-01-24 16:25] MED LIST changes: -DIPH0.5D12 IM; +DIPH0.5S2 IM
--- NOTE | 2019-01-24 16:37 | ER Report ---
History and Physical Time Seen By MD: 16:35 HPI/ROS CHIEF COMPLAINT: Foot ulcer wound HISTORY OF PRESENT ILLNESS: 64-year-old female long history of diabetes comes emergency Department today for evaluation of a apparent foot ulcer on the plantar surface under her ball of her foot by her great toe she is status post great toe amputation secondary to osteomyelitis from her diabetes as notice it about 3 or 4 weeks ago and is having trouble getting to seeing her primary care doc's there is a significant delay per her own report of getting in to see her primary care doc so she came to the emergency department. Patient states that she had some serous fluid drainage but no purulent material noted and some tend erness with with ambulation. Patient denies any falls wound trauma to the area and says she's had these in the past REVIEW OF SYSTEMS: Respiratory: No cough, no dyspnea. Cardiovascular: No chest pain, no palpitations. Gastrointestinal: No vomiting, no abdominal pain. Musculoskeletal: No back pain. Remainder of the 14 system rev: Yes Allergies: Coded Allergies: levofloxacin (Verified Allergy, Intermediate, RASH, 01/24/19) Home Meds Active Scripts Diazepam (DIAZEPAM) 5 Mg Tablet, 1 TAB PO 2-3XD PRN for MUSCLE SPASMS, #15 TAB 0 Refills Prov:ESTER STEELE APRNP-C 11/07/18 Oxycodone Hcl/Acetaminophen (PERCOCET 5-325 MG TABLET) 1 Each Tablet, 1-2 EACH PO Q6H PRN for PAIN, #30 TAB 0 Refills Prov:ESTER STEELE APRNP-C 11/07/18 Ibandronate Sodium (BONIVA) 150 Mg Tablet, 1 TAB PO Q30D, #3 TAB 3 Refills Prov:ESTER STEELE APRN PERCUSSION INSTRUMENT TUNER-C 10/26/18 Albuterol Sulfate (VENTOLIN HFA) 18 Gm Inh, 2 PUFF IH Q4H PRN for WHEEZING, #1 BOTTLE 1 Refill Prov:ESTER STEELE APRN-C 08/30/18 Duloxetine HCl (Duloxetine HCl) 30 Mg Capsule.dr, 1 CAP PO DAILY, #90 CAP 1 Refill Prov:ESTER STEELE APRN-C 08/30/18 Metformin Hcl (METFORMIN HCL) 500 Mg Tablet, 2 TAB PO BID, #360 TAB 1 Refill Prov:ESTER STEELE APRN-C 08/30/18 Olopatadine (PATADAY) 0.05 Ml Soln, 1 GTT OU DAILY, #1 BOTTLE 5 Refills Prov:ESTER STEELE APRNP-C 08/30/18 Tiotropium [place] (SPIRIVA) 18 Mcg/Cap Inh, 1 CAP INH DAILY, #90 CAP 3 Refills Prov:ESTER STEELE APRN-C 08/30/18 Losartan Potassium (LOSARTAN POTASSIUM) 25 Mg Tablet, 1 TAB PO QDAY, #90 TAB 3 Refills Prov:ESTER STEELE APRN-C 08/30/18 Prednisone 10 Mg Tab (PREDNISONE 10 MG TAB) 10 Mg Tablet, 1 TAB PO QAM, #90 TAB 3 Refills Prov:ESTER STEELE APRN-C 08/30/18 Prednisone (PREDNISONE) 1 Mg Tab, 1 TAB PO HS, #90 TAB 3 Refills Prov:ESTER STEELE APRN-C 08/30/18 Atorvastatin Calcium (ATORVASTATIN CALCIUM) 20 Mg Tablet, 1 TAB PO DAILY, #90 TAB 4 Refills Prov:ESTER STEELE APRN-C 08/30/18 Hydrochlorothiazide (HYDROCHLOROTHIAZIDE) 25 Mg Tablet, 1 TAB PO QDAY, #90 TAB 4 Refills Prov:ESTER STEELE APRN-C 08/30/18 Folic Acid (FOLIC ACID) 1 Mg Tablet, 1 TAB PO QDAY, #90 TAB 4 Refills Prov:ESTER STEELE APRN-C 08/30/18 Pantoprazole Sodium (PANTOPRAZOLE SODIUM) 40 Mg Tablet.dr, 1 TAB PO QDAY, #90 TAB.SR 4 Refills Prov:ESTER STEELE APRN-C 08/30/18 Triamcinolone Acetonide 0.1% Cr 15 Gm Tube (TRIAMCINOLONE ACETONIDE 0.1% CREAM) 15 Gm Cream..g., 1 LELO TP BID, #30 GM 0 Refills Prov:ESTER STEELE APRN-C 06/11/18 [Forearm Crutches] No Conflict Check Prov:ESTER STEELE JOANNE PEÑALOZA-C 03/05/18 [Portable Oxygen] No Conflict Check Prov:ESTER STEELE JOANNE SPANGLERP-C 01/30/18 NYSTATIN 396347 UNT/ML Topical Cream (NYSTATIN 389244 UNT/ML Topical Cream) 15 Gm Cream..g., 1 LELO TP TID, #60 GM 1 Refill Prov:ESTER STEELE JOANNE PEÑALOZA-Davidson 09/01/17 Nystatin (NYSTOP) 60 Gm Powder, 1 LELO TP TID PRN for RASH, #1 BOTTLE 3 Refills 100,000 CORRECTION units per gram Prov:ESTER STEELE JOANNE PEÑALOZA-Davidson 09/01/17 [diabetic supplies] No Conflict Check Prov:ESTER STEELE JOANNE PEÑALOZA-C 08/16/17 Reported Medications Etanercept (ENBREL) 50 Mg/1 Ml Disp.syrin, 50 MG SQ Q Monday11/20/18 Celecoxib (CELEBREX) 200 Mg Capsule, 200 MG PO QDAY, CAPSULE 11/20/18 Etanercept (ENBREL) Unknown Strength Pen.injctr, SQ 01/26/18 Oxygen (Oxygen) 2 L Inha, 2 L INH HS 10/28/12 Multivitamins (Multivitamin) 1 Each Capsule, 1 EACH PO 10/28/12 Reviewed Nurses Notes: Yes Old Medical Records Reviewed: Yes Hx Smoking: No Smoking Status: Never Smoker Exposure to Second Hand Smoke?: No Hx Substance Use Disorder: No Hx Alcohol Use: No Constitutional Vital Sign - Last 24 Hours 01/24/19 16:29 Temp 99.3 Pulse 93 Resp 20 B/P (MAP) 146/78 Pulse Ox 92 O2 Delivery Room Air Physical Exam General appearance: Alert no distress. Respiratory: Chest is non tender, lungs are clear to auscultation. Cardiac: Regular rate and rhythm [ ] Foot examination demonstrates a foot ulcer under the plantar surface of the great toe status post amputation noted. Maternal fluctuance noted about 1-1/2-2 mm in diameter DIFFERENTIAL DIAGNOSIS: After history and physical exam differential diagnosis was considered for diabetic foot ulcer ostial myelitis Medical Decision Making ED Course/Re-evaluation ED Course ED course 64-year-old female diabetic status post great toe and dictation the right foot comes in with an ulcer on the plantar surface of the proximal great toe is a small area no fluctuance noted no serous or purulent material evacuated from the area no abscess to drain x-ray did not show any osteopenia correction did show osteopenia and osteomyelitis will start on antibiotics if the symptoms continue we'll get an MR MRA of the foot for more definitive diagnosis I also spoke with general surgery and have an appointment set Decision to Disposition Date: Jan 24, 2019 Decision to Disposition Time: 17:09 Depart Departure Latest Vital Signs Vital Signs Date Time Temp Pulse Resp B/P (MAP) Pulse Ox O2 Delivery O2 Flow Rate FiO2 01/24/19 16:29 99.3 93 20 146/78 92 Room Air Impression: Primary Impression: Diabetic foot ulcer Condition: Improved Disposition: HOME OR SELF-CARE Referrals: ESTER STEELE APRN PERCUSSION INSTRUMENT TUNER-C (PCP) ROBBY CÁRDENAS MD 2 Weeks New Scripts Sulfamethoxazole/Trimet 800-160 Mg Tab (BACTRIM DS TABLET) 1 Each Tablet 1 TAB PO Q12H, #14 MG 0 Refills TAKE ONE TABLET BY MOUTH EVERY TWELVE HOURS Prov: SEDRICK PADRON MD 01/24/19 Patient Instructions: Diabetic Foot Ulcers (DC) SEDRICK PADRON MD Jan 24, 2019 16:37
[2019-01-24 17:00] VITALS: BP 140/70
--- NOTE | 2019-01-24 17:06 | RADIOLOGY IMAGING REPORT ---
FACILITY: [facility] PATIENT NAME: Kamilla Gonzalez : 1955 MR: [id number] V: [id number] EXAM DATE: ORDERING PHYSICIAN: SEDRICK PADRON TECHNOLOGIST: Location: [facility] Patient: Kamilla Gonzalez : 1955 Visit/Account:[id number] Date of Sevice: 01/24/2019 Exam type: FOOT 3 VIEWS RIGHT History: Wound on plantar surface of right foot adjacent to the ball of first toe Comparison: August 01, 2017. Findings: Again noted is diffuse osteopenia of the bones of the right foot. There has been amputation of the d istal phalanx and most of the proximal phalanx of the right great toe. No definite evidence of osteo myelitis identified. There is a right calcaneal spur. Vascular calcifications are present in additi on to extensive degenerative changes throughout the tarsal bones and interphalangeal joints IMPRESSION: 1. Osteopenia Amputation of the distal phalanx and most of the proximal tonsil right great toe No definite evidence of osteomyelitis however if this remains of strong clinical concern MR with cont rast be more sensitive Report Dictated By: Kirstie Garcia MD at 01/24/2019 5:00 PM Report E-Signed By: Kirstie Garcia MD at 01/24/2019 5:03 PM WSN:[id number]
[2019-01-24] MEDS ORDERED: SULF-198 PO (17:10)
== END 2019-01-24 17:25 | disposition home or self-care (01) ==
LOC: ER 16:43
DX: E11.621 Type 2 diabetes mellitus with foot ulcer (principal)
CPT/HCPCS: 99283

== ENCOUNTER 2019-02-04 20:15 | Emergency (ER) | payer MEDICARE, OTHER ==
[2017-08-02 13:46] VITALS: Wt 129.3 kg
[2019-02-04 20:20] VITALS: BP 148/84
--- NOTE | 2019-02-04 20:47 | ER Report ---
History and Physical Time Seen By MD: 20:30 Hx. of Stated Complaint: PAIN TO RIGHT SIDE OF HEAD, NECK, BEHIND EAR SINCE MONDAY HPI/ROS CHIEF COMPLAINT: pain right scalp/neck/ear area HISTORY OF PRESENT ILLNESS: This is a 64 year old female. She has had about 4 days of pain in the right side of head. Behind ear on scalp, down into neck and somewhat to jaw. Just on scalp on , worsening to the other areas over the next few days. Tender to touch. Feels warm. No drainage. Normal hearing. Nomral vising. No headache. No cough or shortness of breath. No chest pain. Has rheumatoid arthritis. Is on Prednisone. Has some past episodes of pain and paresthesias, unexplained. Blood sugars running a little higher the last few days as well. Allergies: Coded Allergies: levofloxacin (Verified Allergy, Intermediate, RASH, 01/24/19) Home Meds Active Scripts Prednisone (PREDNISONE) 20 Mg Tablet, 60 MG PO QDAY for 4 Days, #23 TAB 0 Refills Prov:NICK GARCIA MD 02/04/19 Doxycycline Hyclate (DOXYCYCLINE HYCLATE) 100 Mg Tablet, 100 MG PO BID, #14 TAB 0 Refills Prov:NICK GARCIA MD 02/04/19 Metformin Hcl (METFORMIN HCL) 500 Mg Tablet, 2 TAB PO BID, #360 TAB 1 Refill Prov:ESTER STEELE APRN-[employer] 01/31/19 Sulfamethoxazole/Trimet 800-160 Mg Tab (BACTRIM DS TABLET) 1 Each Tablet, 1 TAB PO Q12H, #14 MG 0 Refills TAKE ONE TABLET BY MOUTH EVERY TWELVE HOURS Prov:SEDRICK PADRON MD 01/24/19 Diazepam (DIAZEPAM) 5 Mg Tablet, 1 TAB PO 2-3XD PRN for MUSCLE SPASMS, #15 TAB 0 Refills Prov:ESTER STEELE APRN 11/07/18 Oxycodone Hcl/Acetaminophen (PERCOCET 5-325 MG TABLET) 1 Each Tablet, 1-2 EACH PO Q6H PRN for PAIN, #30 TAB 0 Refills Prov:ESTER STEELE APRN 11/07/18 Ibandronate Sodium (BONIVA) 150 Mg Tablet, 1 TAB PO Q30D, #3 TAB 3 Refills Prov:ESTER STEELE APRNP-C 10/26/18 Albuterol Sulfate (VENTOLIN HFA) 18 Gm Inh, 2 PUFF IH Q4H PRN for WHEEZING, #1 BOTTLE 1 Refill Prov:ESTER STEELE APRN-C 08/30/18 Duloxetine HCl (Duloxetine HCl) 30 Mg Capsule.dr, 1 CAP PO DAILY, #90 CAP 1 Refill Prov:ESTER STEELE APRN-C 08/30/18 Olopatadine (PATADAY) 0.05 Ml Soln, 1 GTT OU DAILY, #1 BOTTLE 5 Refills Prov:ESTER STEELE APRN-C 08/30/18 Tiotropium [employer] (SPIRIVA) 18 Mcg/Cap Inh, 1 CAP INH DAILY, #90 CAP 3 Refills Prov:ESTER STEELE APRN-C 08/30/18 Losartan Potassium (LOSARTAN POTASSIUM) 25 Mg Tablet, 1 TAB PO QDAY, #90 TAB 3 Refills Prov:ESTER STEELE APRNP-C 08/30/18 Prednisone 10 Mg Tab (PREDNISONE 10 MG TAB) 10 Mg Tablet, 1 TAB PO QAM, #90 TAB 3 Refills Prov:ESTER STEELE APRN-C 08/30/18 Prednisone (PREDNISONE) 1 Mg Tab, 1 TAB PO HS, #90 TAB 3 Refills Prov:ESTER STEELE APRN-C 08/30/18 Atorvastatin Calcium (ATORVASTATIN CALCIUM) 20 Mg Tablet, 1 TAB PO DAILY, #90 TAB 4 Refills Prov:ESTER STEELE APRNP-C 08/30/18 Hydrochlorothiazide (HYDROCHLOROTHIAZIDE) 25 Mg Tablet, 1 TAB PO QDAY, #90 TAB 4 Refills Prov:ESTER STEELE APRN-C 08/30/18 Folic Acid (FOLIC ACID) 1 Mg Tablet, 1 TAB PO QDAY, #90 TAB 4 Refills Prov:ESTER STEELE APRNP-C 08/30/18 Pantoprazole Sodium (PANTOPRAZOLE SODIUM) 40 Mg Tablet.dr, 1 TAB PO QDAY, #90 TAB.SR 4 Refills Prov:ESTER STEELE APRN 08/30/18 Triamcinolone Acetonide 0.1% Cr 15 Gm Tube (TRIAMCINOLONE ACETONIDE 0.1% CREAM) 15 Gm Cream..g., 1 LELO TP BID, #30 GM 0 Refills Prov:ESTER STEELE APRN-[employer] 06/11/18 [Forearm Crutches] No Conflict Check Prov:ESTER STEELE APRN-C 03/05/18 [Portable Oxygen] No Conflict Check Prov:ESTER STEELE APRN-C 01/30/18 NYSTATIN 280016 UNT/ML Topical Cream (NYSTATIN 470307 UNT/ML Topical Cream) 15 Gm Cream..g., 1 LELO TP TID, #60 GM 1 Refill Prov:ESTER STEELE APRN 09/01/17 Nystatin (NYSTOP) 60 Gm Powder, 1 LELO TP TID PRN for RASH, #1 BOTTLE 3 Refills 100,000 SNF units per gram Prov:ESTER STEELE APRN-[employer] 09/01/17 [diabetic supplies] No Conflict Check Prov:ESTER STEELE APRN-[employer] 08/16/17 Reported Medications Etanercept (ENBREL) 50 Mg/1 Ml Disp.syrin, 50 MG SQ Q Monday11/20/18 Celecoxib (CELEBREX) 200 Mg Capsule, 200 MG PO QDAY, CAPSULE 11/20/18 Etanercept (ENBREL) Unknown Strength Pen.injctr, SQ 01/26/18 Oxygen (Oxygen) 2 L Inha, 2 L INH HS 10/28/12 Multivitamins (Multivitamin) 1 Each Capsule, 1 EACH PO 10/28/12 Reviewed Nurses Notes: Yes Hx Smoking: No Smoking Status: Never Smoker Exposure to Second Hand Smoke?: No Hx Substance Use Disorder: No Hx Alcohol Use: No Constitutional Vital Sign - Last 24 Hours 02/04/19 02/04/19 20:20 21:00 Temp 99.4 Pulse 99 79 Resp 18 B/P (MAP) 148/84 Pulse Ox 90 91 O2 Delivery Room Air Room Air Physical Exam General Appearance: Alert, no distress. Eyes: Pupils equal and round no injection. Reactive. No nystagmus. EOMI. ENT: Normal oral mucosa. Moist mucous membranes. Tympanic membranes are normal. Normal posterior oropharynx. Normal nasal mucosa. Neck: Neck is supple and non tender. Posterior right aspect of neck with some posterior lymphadenopathy. Respiratory: Chest is non tender, lungs are clear to auscultation. Cardiac: Regular rate and rhythm, normal peripheral perfusion. Skin: Redness and warmth of area of scalp involved. No sores. No vesicles. DIFFERENTIAL DIAGNOSIS: After history and physical exam differential diagnosis was considered for red and warm area with pain and what feels like lymphadenopathy below in the neck, likely a cellulitis. Cannot entirely rule out shingles however, although no vesicles seen. Medical Decision Making ED Course/Re-evaluation ED Course She is on Bactrim DS for toe wound, started this after the pain started. Added Doxycycline and a Prednisone burst. She will watch for signs of shingles. Recommended f/u with PCP or rheumatology if not improving. Decision to Disposition Date: Feb 04, 2019 Decision to Disposition Time: 20:48 Depart Departure Latest Vital Signs Vital Signs Date Time Temp Pulse Resp B/P (MAP) Pulse Ox O2 Delivery O2 Flow Rate FiO2 02/04/19 21:00 79 91 Room Air 02/04/19 20:20 99.4 18 148/84 Impression: Primary Impression: Cellulitis Condition: Improved Disposition: HOME OR SELF-CARE Referrals: ESTER STEELE APRNP-C (PCP) New Scripts Prednisone (PREDNISONE) 20 Mg Tablet 60 MG PO QDAY for 4 Days, #23 TAB 0 Refills Prov: NICK GARCIA MD 02/04/19 Doxycycline Hyclate (DOXYCYCLINE HYCLATE) 100 Mg Tablet 100 MG PO BID, #14 TAB 0 Refills Prov: NICK GARCIA MD 02/04/19 Patient Instructions: Cellulitis (ED) Additional Instructions: Take Prednisone 20mg tablet, 3 tablets once a day for 4 days. You can stop your regular Prednisone while taking this new prescription for the next 4 days, then restart once this is complete. Take Doxycycline 100mg twice a day for 7 days. Keep taking your Bactrim. There is a chance this could be shingles. Watch for a vesicular rash (small blisters with clear or cloudy fluid). If you see these, let me know or see your regular doctor so we can begin treatment for shingles. Problem Qualifiers Primary Impression: Cellulitis Site of cellulitis: head Qualified Codes: L03.811 - Cellulitis of head [any part, except face] NICK GARCIA MD Feb 04, 2019 20:47
[2019-02-04] MEDS ORDERED: DOXYCYCLINE HYCL 100 MG TAB TH PO ONE (20:50)
[2019-02-04] MEDS ORDERED: PRED20TA6 PO (20:51)
[2019-02-04] MEDS ORDERED: DOXY-179 PO (20:51)
== END 2019-02-04 21:10 | disposition home or self-care (01) ==
LOC: ER 20:30
DX: L03.811 Cellulitis of head [any part, except face] (principal)
CPT/HCPCS: 99283

== ENCOUNTER → 2019-04-09 | Outpatient (CLI) | payer MEDICARE, OTHER ==
[2017-08-02 13:46] VITALS: BMI 43.6
[~2019-04-09] MED LIST changes: +CLOT12CR4 TOP; +DULO60CA7 PO; +LOSA50TA80 PO
[2019-04-09 11:14] LABS: PLATELET COUNT, AUTOMATED 226 K/uL (150-450)
--- NOTE | 2019-04-09 15:05 | RADIOLOGY IMAGING REPORT ---
FAC[place] [facility] [place]IENT NAME: Kamilla Gonzalez : 1955 MR: [id number] V: [id number] EXAM DATE: ORDERING PHYSICIAN: ROBBY CÁRDENAS TECHNOLOGIST: Location[place] [facility] [place] Patient: Kamilla Gonzalez : 1955 Visit/Account:[id number] Date of Sevice: 04/09/2019 MR FOOT RT W/O CON COMPARISON: MRI right foot without contrast 07/10/2018, right foot radiographs 2018. HISTORY: Diabetic ulcer right great toe with history of partial toe amputation. Right pigtail pain. TECHNIQUE: Multiplanar MRI of the right forefoot utilizing T1 weighted and fluid sensitive sequences. CONTRAST: None. FINDINGS: BONES : Previous great toe amputation across the base of the proximal phalanx. The osteotomy margin is sharp. The second and third TMT joints are fused as are the cuneiforms. Moderate spurring at the f irst MTP joint. No bone marrow edema, destructive changes are evidence of osteomyelitis. FLUID: No effusion in the forefoot and visualized midfoot. SOFT TISSUES: Diffuse subcutaneous fat edema, especially dorsally. Marked diffuse fatty muscle atrop hy throughout the entire visualized foot. Plantar skin thickening of the site of the marked ulcer, al alis the plantar margin of the remaining great toe distal phalanx. There is a 1 x 2 x 3 mm focus of fo eliel soft tissue edema versus a tiny fluid collection within the plantar skin at this site, series 6 i mage 11. Elsewhere no soft tissue fluid collections. OTHER: Negative. IMPRESSION: 1. Previous right great toe amputation across the base of the proximal phalanx. No evidence of osteo myelitis. 2. Diffuse soft tissue edema. 3. 1 x 2 x 3 mm focus of soft tissue edema versus a tiny fluid collection within the skin at the oni ntar ulcer. 4. Bony fusion across the cuneiforms and second and third TMT joints.. Report Dictated By: Ty Tadeo at 04/09/2019 2:51 PM Report E-Signed By: Ty Tadeo at 04/09/2019 2:58 PM WSN:[id number]
== END ==
LOC: MAMO 01-28 00:28 → MRI 00:46
PROVIDERS: ATTEND Surgery
DX: E11.621 Type 2 diabetes mellitus with foot ulcer (principal); R60.0 Localized edema
CPT/HCPCS: 36415; 82040; 82247; 82310; 82374; 82435; 82565; 82947; 83036; 84075; 84132; 84155; 84295; 84443; 84450; 84460; 84520; 85025